=== PATIENT | female | born 1940 | race Caucasian/White ===

== ENCOUNTER 2017-12-10 12:55 | Observation (INO) | payer MEDICARE, OTHER ==
--- NOTE | 2017-12-10 14:01 | RAD ---
TWO VIEWS CHEST: HISTORY: Fall with left chest pain. FINDINGS: There is a small left apical pneumothorax in the 5-10% range. There are fractures of the lateral 7th, 8th, and 9th ribs identified on this frontal projection. Lung whitehead are otherwise clear. Heart and mediastinum unremarkable. There is aortic calcification noted. IMPRESSION: 1. Small left apical pneumothorax. 2. Left-sided rib fractures. Findings relayed to Dr. Lorenz. Code CR. POS: [facility]
[2017-12-10] MEDS ORDERED: Morphine 2 MG/ML SYRINGE ONE (14:09)
[2017-12-10] MEDS ORDERED: Ketorolac Tromethamine 30 MG/ML VIAL ONE (14:10)
[2017-12-10 14:15] LABS: #Basophils 0.1 thou/uL (0.0-0.2); #Eosinphils 0.1 thou/uL (0.0-0.7); #Lymphocytes 1.8 thou/uL (1.20-3.40); #Monocytes 1.2 thou/uL (0.11-0.59); #Neutrophils 14.1 thou/uL (1.40-6.50); %Basophils 0.5 % (0.0-1.0); %Eosinophils 0.6 % (0.0-10.0); %Lymphocytes 10.4 % (21.0-51.0); %Monocytes 6.9 % (0.0-10.0); %Neutrophils 81.7 % (42.0-75.0); Hemoglobin 12.5 g/dL (12.0-16.0); Mean Corpuscular HGB CONC 32.4 g/dL (32.0-36.0); Mean Corpuscular Hemoglobin 30.4 pg (27.0-31.0); Mean Corpuscular Volume 93.8 fl (81.0-99.0); Mean Platelet Volume 8.4 fL (7.4-10.4); Platelet Count 249 thou/uL (130-400); RBC Distribution Width 11.9 % (11.5-14.5); Red Blood Cell (RBC) Count 4.12 mill/uL (4.20-5.40); White Blood Cell (WBC) Count 17.3 thou/uL (4.8-10.8)
[2017-12-10 14:36] LABS: Anion Gap 14 mmol/L (10-20); BUN (Urea Nitrogen) 20 mg/dL (9.8-20.1); Calc. Creatinine Clearance 0 mL/min (70-130); Calcium 9.7 mg/dL (7.8-10.44); Carbon Dioxide 27 mmol/L (23-31); Chloride 101 mmol/L (98-107); Estimated GFR-MDRD 59; Glucose 108 mg/dL (83-110); Potassium 4.6 mmol/L (3.5-5.1); Sodium 137 mmol/L (136-145)
[2017-12-10] MEDS ORDERED: Dextrose 5% in Water 1,000 ML IV PRN (15:43)
[2017-12-10] MEDS ORDERED: hydrALAZINE 20 MG/ML VIAL SLOW IVP PRN (15:43)
[2017-12-10] MEDS ORDERED: Dextrose 50% Abboject 50 ML SYRINGE SLOW IVP PRN (15:43)
[2017-12-10] MEDS ORDERED: Ondansetron ODT 4 MG TAB PO PRN (15:43)
[2017-12-10] MEDS ORDERED: Rib Fracture Protocol PO SCH (15:45)
[2017-12-10] MEDS ORDERED: Sodium Chloride 0.9% 1,000 ML IV SCH (15:45)
--- NOTE | 2017-12-10 16:09 | CT ---
CT HEAD WITHOUT CONTRAST: Date: 12/10/17 HISTORY: Fall with injury to chest. Also injury to head. FINDINGS: Ventricles have normal size and position. No evidence of intracranial hemorrhage identified. No mass or edema. Sinuses and mastoids are well aerated. IMPRESSION: No acute abnormality. POS: [facility]
--- NOTE | 2017-12-10 17:01 | HP ---
DATE OF ADMISSION: 12/10/2017 ATTENDING PHYSICIAN: Deonte Spann DO CHIEF COMPLAINT: Left rib fracture. HISTORY OF PRESENT ILLNESS: The patient is a 77-year-old female who lives at home. She reportedly w as in her kitchen this morning when she tripped over her feet and fell hitting her left arm and left ribs on the counter and then landing on the floor. She felt immediate pain in her left ribs. She de nies hitting her head. She denies loss of consciousness. Her daughter was present on the scene, who verifies that she did not lose consciousness. She was brought to [place] where she was evaluated and found to have multiple left-sided rib fractures and a small apical pneumothorax. PHYSICAL EXAMINATION: On exam, the patient reports that her pain is located on the left lateral ches t wall. The pain is only moderately severe when she is resting; however, with movement or deep breat ang it becomes severe. She describes the pain as sharp. The pain does not radiate. She denies iván rtness of breath. She denies other chest pain. She denies dizziness or lightheadedness. Of note, h er GCS was 15 upon initial presentation. PAST MEDICAL HISTORY: The patient reports past medical history of high cholesterol, hypertension, hy pothyroidism, hyperlipidemia, and CVA with multiple TIAs. The patient is unsure of the date of her C VA, but reports it may have been in 2013. PAST SURGICAL HISTORY: The patient reports a right carotid endarterectomy in approximately 2010. Th e patient also reports a remote history of hysterectomy. FAMILY HISTORY: Noncontributory for this case. ALLERGIES: The patient denies any known drug allergies. HOME MEDICATIONS: The patient reports taking the following medications: She does not know the doses . Lisinopril; alprazolam; Synthroid; Keppra; Zetia; and Repatha, which she is taking experimentally. PHYSICAL EXAMINATION: VITAL SIGNS: BP 158/62, heart rate 70, O2 sats 100% on nonrebreather. GENERAL APPEARANCE: The patient is an elderly adult female sitting in bed in no acute distress. HEENT: She is normocephalic and atraumatic. Eyes: PERRLA. EOMI. Ears: External auditory canals are atraumatic and free of discharge or blood. Nose: Nares are patent. No blood or discharge. Katie th: Oropharynx is pink and moist. Dentition is intact. NECK: Trachea is midline. She has no tenderness. CHEST: She has tenderness to palpation with an appreciable bony deformity on her left lateral chest wall. This is in the area approximately of the 9th and 10th ribs. Her breath sounds are clear to a uscultation bilaterally with normal effort. CARDIOVASCULAR: She has a regular rate and rhythm with normal S1 and S2. No murmurs, gallops, or ru bs. ABDOMEN: Soft, nontender, nondistended. She has normal bowel sounds. EXTREMITIES: She is neurovascularly intact x4. Radial and dorsalis pedis pulses are 2+ bilaterally. She has 2 superficial abrasions on her left upper extremity. Neither of these penetrate the dermis . NEUROLOGIC: She is A and O x3. She has a GCS of 15. Cranial nerves II-XII are intact and she has n o apparent focal deficits. PSYCHIATRIC: Her mood and affect are appropriate. LABORATORY DATA: Hematology: WBC 17.3, hemoglobin 12.5, hematocrit 38.6, platelets 249. Chemistry: Sodium 137, potassium 4.6, chloride 101, bicarbonate 27, BUN 20, creatinine 0.92, glucose 108, calc ium 9.7. IMAGIN. Chest x-ray: Small left apical pneumothorax. Left-sided rib fractures. 2. Head CT: At the time of this dictation, head CT has been taken, but not reviewed. We will follo w up shortly. ASSESSMENT: 1. Status post ground level fall. 2. Small left apical pneumothorax. 3. Left-sided rib fractures. 4. Acute traumatic pain. 5. History of cerebrovascular accident, present on admission. 6. History of hypertension, present on admission. 7. Possible history of focal seizures, present on admission. PLAN: 1. Plan will be to admit the patient to the surgical floor. We will optimize her pain control and g domonique other supportive care measures as needed. She can be on a regular diet. 2. Follow up head CT once results are posted. 3. Repeat chest x-ray in the morning. If the pneumothorax is improved, the patient will likely be a ble to discharge. If it has worsened, we will consider putting in a chest tube. 4. We will consider recommending Home Health or home physical therapy to help with falling. We will discuss with family to try to get a better assessment of how often she is falling and what are the c ircumstances. This patient was seen and examined along with Dr. Deonte Spann, who agrees with the assessment and evans soares
[2017-12-10] MEDS: Acetaminophen 500 MG TAB PO SCH (18:37)
[2017-12-10] MEDS: traMADol HCl 50 MG TAB PO SCH (18:38)
[2017-12-10] MEDS: Gabapentin 100 MG CAP PO SCH (21:57)
[2017-12-10] MEDS: Ibuprofen 600 MG TAB PO SCH (21:58)
[2017-12-10] MEDS: Cyclobenzaprine 10 MG TAB PO PRN (21:58)
[2017-12-10] MEDS: Famotidine 20 MG TAB PO SCH (21:58)
[2017-12-10 22:25] VITALS: BMI 24.5
[2017-12-11] MEDS: traMADol HCl 50 MG TAB PO SCH ×4 (00:50→17:09)
[2017-12-11] MEDS: Acetaminophen 500 MG TAB PO SCH ×4 (00:52→17:05)
[2017-12-11] MEDS: Ibuprofen 600 MG TAB PO SCH ×2 (06:39→16:04)
[2017-12-11] MEDS: Cyclobenzaprine 10 MG TAB PO PRN (06:39)
[2017-12-11] MEDS: Gabapentin 100 MG CAP PO SCH ×2 (08:05→16:04)
[2017-12-11] MEDS: Famotidine 20 MG TAB PO SCH (08:05)
--- NOTE | 2017-12-11 08:08 | RAD ---
CHEST 1 VIEW: Date: 12/11/17 COMPARISON: 01/29/17 and 12/10/17. HISTORY: Pneumothorax. FINDINGS: Atherosclerosis of aorta. Normal cardiac silhouette. Pulmonary vessels are normal. Right costophrenic angle clear. Stable aeration of right lung. Stable left-sided pneumothorax. Small left-sided pleural effusion. Stable left rib fractures. IMPRESSION: 1. Interval development of small left-sided pleural effusion. 2. Atherosclerosis. 3. Stable left-sided pneumothorax. POS: [facility]
[2017-12-11 08:10] VITALS: TEMP 97.7
[2017-12-11 15:40] VITALS: BP 120/68
--- NOTE | 2017-12-12 11:24 | DIS ---
DATE OF ADMISSION: 12/10/2017 DATE OF DISCHARGE: 12/11/2017 ADMITTING PHYSICIAN: Dr. Deonte Spann. DISCHARGING PHYSICIAN: Dr. Deonte Spann. REASON FOR HOSPITALIZATION: Ground level fall with left rib pain. HOSPITAL DIAGNOSES: 1. Status post ground level fall. 2. Small apical left pneumothorax. 3. Left-sided rib fractures. 4. Acute traumatic pain. 5. History of cerebrovascular accident. 6. History of hypertension, present on admission. DISCHARGE CONDITION: Good. DISCHARGE DISPOSITION: [facility]. DISCHARGE MEDICATIONS: The patient may resume all home medications. In addition, she was also given acetaminophen 1000 mg oral every 6 hours, Flexeril 5 mg oral 3 times daily p.r.n., Pepcid 20 mg oral twice daily, Gabapentin 100 mg oral 3 times daily, hydralazine 10 mg slow IV push every 4 hours as needed, Motrin 600 mg oral every 8 hours, DuoNeb 3 mL every 6 hours as needed, and tramadol 100 mg oral every 6 hours. FOLLOWUP: Follow up with Dr. Spann in 2 weeks with repeat chest x-ray. ACTIVITY: As tolerated. DIET: Regular. THERAPY: Occupational, physical therapy EQUIPMENT: incentive spirometry. BRIEF HISTORY OF HOSPITALIZATION: Ms. Fay is a 77-year-old female, who had a ground level fall in her home. She was transported to [facility] where she was found to have multiple left-sided rib fractures as well as a small apical pneumothorax. She had no respiratory distress or any other symptoms. Her GCS was 15 upon initial presentation and remained 15. She was admitted to the surgical floor by Trauma services. Followup chest x-ray the next morning showed stable left pneumothorax. She was instructed on incentive spirometry. She remained 94% to 100% on room air. She was evaluated by rehab and accepted to [facility]. She was then discharged to the [facility] facility. She will follow up with Dr. Spann in 2 weeks. Patient was seen and examined with Dr. Spann on the day of discharge. He agrees with the assessment and plan. [facility]
== END 2017-12-11 18:02 ==
LOC: ERS 12:55 → SURG A 15:23
PROVIDERS: ADMIT Surgery; ATTEND Surgery
DX: S27.0XXA Traumatic pneumothorax, initial encounter (principal); S22.42XA Multiple fractures of ribs, left side, initial encounter for closed fracture; W01.190A Fall on same level from slipping, tripping and stumbling with subsequent striking against furniture, initial encounter; G89.11 Acute pain due to trauma; I10 Essential (primary) hypertension; E78.00 Pure hypercholesterolemia, unspecified; E03.9 Hypothyroidism, unspecified; E78.5 Hyperlipidemia, unspecified; Z86.73 Personal history of transient ischemic attack (TIA), and cerebral infarction without residual deficits; Z79.82 Long term (current) use of aspirin; Z79.899 Other long term (current) drug therapy; Z88.8 Allergy status to other drugs, medicaments and biological substances; Z90.710 Acquired absence of both cervix and uterus; Z98.890 Other specified postprocedural states
CPT/HCPCS: 70450; 71045; 71046; 80048; 85025; 94640 ×2; 94760; 96374; 96375; 97116; 97139; 99285; G0378; G8978; G8979; J1885; J2270; J7620

== ENCOUNTER 2017-12-27 09:32 | Outpatient (CLI) | payer MEDICARE, OTHER ==
--- NOTE | 2017-12-27 11:31 | RAD ---
CHEST 2 VIEWS: Date: 12/27/17 COMPARISON: 12/10/17. HISTORY: Follow-up pneumothorax. FINDINGS: Left-sided rib fractures are again demonstrated. Heart size within normal limits. There are atheroscl erotic changes of the aorta. The right lung is clear. There is some left-sided pleural effusion prese nt. The pneumothorax appears to have resolved. IMPRESSION: Pleural and parenchymal changes of the left base consistent with some effusion with atelectasis. No s igns of pneumothorax. POS: [facility]
== END 2017-12-27 09:33 | disposition home or self-care (01) ==
LOC: RAD 09:32
PROVIDERS: ATTEND Family Medicine
DX: S22.42XD Multiple fractures of ribs, left side, subsequent encounter for fracture with routine healing (principal); J93.9 Pneumothorax, unspecified
CPT/HCPCS: 71046

== ENCOUNTER 2018-12-24 12:05 | Inpatient (IN) | payer MEDICARE ==
[2018-12-24 12:33] LABS: #Basophils 0.1 thou/uL (0.0-0.2); #Eosinphils 0.1 thou/uL (0.0-0.7); #Lymphocytes 1.7 thou/uL (1.20-3.40); #Monocytes 0.8 thou/uL (0.11-0.59); #Neutrophils 8.6 thou/uL (1.40-6.50); %Basophils 0.5 % (0.0-1.0); %Eosinophils 0.5 % (0.0-10.0); %Lymphocytes 15.3 % (21.0-51.0); %Monocytes 7.1 % (0.0-10.0); %Neutrophils 76.7 % (42.0-75.0); Hemoglobin 12.8 g/dL (12.0-16.0); Mean Corpuscular HGB CONC 31.1 g/dL (32.0-36.0); Mean Corpuscular Hemoglobin 29.5 pg (27.0-31.0); Mean Platelet Volume 8.9 fL (7.4-10.4); Platelet Count 250 thou/uL (130-400); RBC Distribution Width 11.8 % (11.5-14.5); Red Blood Cell (RBC) Count 4.35 mill/uL (4.20-5.40); White Blood Cell (WBC) Count 11.2 thou/uL (4.8-10.8)
[2018-12-24 12:37] LABS: Prothrombin Time 13.3 SEC (12.0-14.7)
[2018-12-24 12:46] LABS: ALT (SGPT) 18 U/L (8-55); AST (SGOT) 21 U/L (5-34); Albumin 3.9 g/dL (3.4-4.8); Alkaline Phosphatase 113 U/L (40-150); Anion Gap 13 mmol/L (10-20); BUN (Urea Nitrogen) 14 mg/dL (9.8-20.1); Bilirubin, Total 0.3 mg/dL (0.2-1.2); CK (CPK) 85 U/L (29-168); Calc. Creatinine Clearance 0 mL/min (70-130); Calcium 9.9 mg/dL (7.8-10.44); Carbon Dioxide 22 mmol/L (23-31); Chloride 105 mmol/L (98-107); Estimated GFR-MDRD 59; Globulin 3.6 g/dL (2.4-3.5); Glucose 102 mg/dL (83-110); Potassium 4.4 mmol/L (3.5-5.1); Protein, Total 7.5 g/dL (6.0-8.3); Sodium 136 mmol/L (136-145)
--- NOTE | 2018-12-24 12:49 | CT ---
CT BRAIN WITHOUT CONTRAST: HISTORY: Level II stroke. FINDINGS: Comparison is made with the exam of 12/10/2017. There is acute 4 cm intraparenchymal contusion/hemorrhage with surrounding edema involving the left t emporoparietal lobe. The ventricular size is appropriate and the basilar cisterns are patent. No mi dline shift is seen. The bony calvarium is intact. The visualized paranasal sinuses and mastoid air cells are well aerated. IMPRESSION: Acute left-sided intraaxial hemorrhage. Discussed over the telephone with ER physician, Dr. Pelon Epps, at 12:40 p.m. [facility]
[2018-12-24 12:58] LABS: PTT 20.2 SEC (22.9-36.1)
[2018-12-24] MEDS ORDERED: niCARdipine 20MG In NaCl 20 MG/200 ML BAG ONE ×2 (13:14→17:46)
[2018-12-24 13:15] LABS: Bilirubin Negative (Negative); Blood, Urine Moderate (Negative); Clarity CLEAR (Clear); Glucose, Urine (Dipstick) Negative (Negative); Leukocyte Negative (Negative); Nitrite Negative (Negative); Protein, Urine (Dipstick) Negative (Neg-Trace); Specific Gravity, Urine 1.003 (1.002-1.036); Urobilinogen 0.2 mg/dL (0.2-1.0)
[2018-12-24 13:19] LABS: Bacteria/HPF 1+ HPF (None Seen); Hyaline Casts/LPF 0-3 HYALINE CAST LPF (0-3 Hyaline); Squamous Epithelial None Seen HPF (0-3); WBC/HPF None Seen HPF (0-3)
[2018-12-24] MEDS ORDERED: Docusate 100 MG CAP PO PRN (17:19)
[2018-12-24] MEDS ORDERED: Milk Of Magnesia 30 ML UDCUP PO PRN (17:19)
[2018-12-24] MEDS ORDERED: Mag-Al 1200 mg/1200 mg/30 ML UDCUP PO PRN (17:19)
[2018-12-24] MEDS ORDERED: Bisacodyl 10 MG SUPP PR PRN (17:19)
[2018-12-24] MEDS ORDERED: Labetalol HCl 100 MG/20 ML VIAL SLOW IVP PRN (17:19)
[2018-12-24] MEDS ORDERED: Acetaminophen 325 MG TAB PO PRN (17:19)
[2018-12-24] MEDS ORDERED: Ondansetron HCl/PF 4 MG in Sodium Chloride 0.9% 50 ML IVPB PRN (17:24)
[2018-12-24] MEDS ORDERED: niCARdipine 40MG In NaCl 40 MG/200 ML BAG IVPB SCH (17:30)
[2018-12-24] MEDS ORDERED: Communication Order-Pharmacy FS PRN (17:42)
[2018-12-24] MEDS ORDERED: niCARdipine HCl 50 MG in Sodium Chloride 0.9% 250 ML 230 ML IVPB PRN (18:01)
[2018-12-24] MEDS ORDERED: levETIRAcetam In NaCl (Iso-Os) 1,000 MG in Premix Bag 1 BAG IVPB SCH (18:15)
[2018-12-24 23:57] VITALS: BMI 24.7
--- NOTE | 2018-12-25 00:29 | HP ---
This is a 50-minute initial patient evaluation of which greater than 50% of the exam was spent in counseling and coordinating the patient's care. Remainder of the exam was spent in review of patient's medical records and formulation of treatment plan. CHIEF COMPLAINT: Altered mental status with large parietooccipital intraparenchymal hemorrhage. HISTORY OF PRESENT ILLNESS: Ms. Fay is a pleasant 78-year-old female, who presents to [facility] for the above complaints. She had significant expressive and receptive aphasia. Majority of her history and exam was obtained from her son and daughter who are at bedside. The patient normally lives alone at home, but has not been driving for the past 3 months. She has a history of TIA in 2011, for which she is on 81 mg aspirin. She does not use tobacco. Apparently, she had spent the weekend with her family and her daughter even saw her yesterday, and states that she was in her normal state of health, but this afternoon when she checked on the patient, she appeared to have significant expressive and receptive aphasia, and was brought to [place]. Review of the patient's head CT again shows large parietooccipital region intraparenchymal hemorrhage, consistent likely with amyloid angiopathy. The patient does have hypertension, and her presenting systolic blood pressure was in the 190s. The patient's family do not report any trauma, although they state that they did see a bruise on her elbow over the last few days. PHYSICAL EXAMINATION: The patient is awake and alert. She again has significant expressive and receptive aphasia, which significantly limits her exam. She is unable to formally follow commands and does not mimic commands. Pupils are equal, round, and reactive bilaterally. She does move all four extremities and appears to be able to move these equally. She has no obvious signs of facial or cranial trauma. GCS currently is E4, V4, M6, which makes her GCS of 14. IMPRESSION AND DIAGNOSES: Altered mental status with left parietooccipital intraparenchymal hemorrhage, likely amyloid angiopathy. PLAN: Discussed the patient's case and imaging with Dr. Feng. At this time, we will admit the patient for overnight observation with every 1 hour neuro checks. Likely, her case does not require neurosurgical intervention and this will likely take time in rehab to improve. We discussed this at great length with the patient's son and daughter. She is able to eat full liquids and I would like her systolic blood pressure to remain less than 140. I have also started her on loading dose of 1000 mg of Keppra with maintenance dose of 500 b.i.d. that we will continue for 1 week. The patient will be on strict bedrest. Please call with any changes in the patient's neurologic status. Otherwise, we will follow up with the patient to repeat head CT in the morning or sooner should symptoms dictate. Job ID: [id number]
[2018-12-25 05:32] LABS: #Basophils 0.1 thou/uL (0.0-0.2); #Eosinphils 0.1 thou/uL (0.0-0.7); #Lymphocytes 1.9 thou/uL (1.20-3.40); #Monocytes 1.1 thou/uL (0.11-0.59); #Neutrophils 7.7 thou/uL (1.40-6.50); %Basophils 0.9 % (0.0-1.0); %Eosinophils 0.7 % (0.0-10.0); %Lymphocytes 17.1 % (21.0-51.0); %Neutrophils 71.2 % (42.0-75.0); Mean Corpuscular Hemoglobin 29.7 pg (27.0-31.0); Mean Corpuscular Volume 92.6 fL (78.0-98.0); Platelet Count 221 thou/uL (130-400); RBC Distribution Width 11.9 % (11.5-14.5); Red Blood Cell (RBC) Count 4.06 mill/uL (4.20-5.40); White Blood Cell (WBC) Count 10.8 thou/uL (4.8-10.8)
[2018-12-25 06:41] LABS: Anion Gap 13 mmol/L (10-20); BUN (Urea Nitrogen) 12 mg/dL (9.8-20.1); Calc. Creatinine Clearance 63 mL/min (70-130); Calcium 9.2 mg/dL (7.8-10.44); Carbon Dioxide 23 mmol/L (23-31); Chloride 104 mmol/L (98-107); Estimated GFR-MDRD 66; Glucose 105 mg/dL (83-110); Potassium 3.8 mmol/L (3.5-5.1); Sodium 136 mmol/L (136-145)
[2018-12-25] MEDS ORDERED: Docusate 100 MG CAP PO PRN (08:16)
[2018-12-25] MEDS: Pantoprazole 40 MG VIAL IVP SCH (09:33)
--- NOTE | 2018-12-25 09:46 | CT ---
PRELIMINARY REPORT/[facility]/EMERGENTY AFTER-HOURS PROCEDURE CT Head Without Contrast EXAM DATE/TIME: 12/25/2018 4:08 AM CLINICAL HISTORY: 78 years old, female; Abnormal radiologic findings of head / skull; Ischemia; F/u intraparenchymal he morrhage; Previous images sent and report faxed TECHNIQUE: Imaging protocol: Axial computed tomography images of the head/brain without contrast. COMPARISON: CT Brain WO Con 12/24/2018 12:34 PM FINDINGS: Brain: Compared to prior examination dated 12/24/2018 and allowing for differences in patient positio fabian, no significant interval change in size of acute intraparenchymal hematoma within the left tempo roparietal region with adjacent vasogenic edema. Periventricular white matter areas of decreased density which are likely secondary to chronic ischemia from microvascular change. Mild diff use cerebral atrophy. Ventricles: Normal. No ventriculomegaly. Bones/joints: Unremarkable. No acute fracture. Sinuses: No significant disease of the paranasal sinuses. Mastoid air cells: No mastoiditis. Soft tissues: Unremarkable. IMPRESSION: 1. Compared to prior examination dated 12/24/2018 and allowing for differences in patient positioning , no significant interval change in size of acute intraparenchymal hematoma within the left temporopa rietal region with adjacent vasogenic edema. Thank you for allowing us to participate in the care of your patient. Dictated and Authenticated by: Clif Glynn MD 12/25/2018 4:33 AM Central Time ([place] & [place]) FINAL REPORT EMERGENCY AFTER HOURS CT BRAIN WITHOUT CONTRAST: Date: 12/25/18 FINDINGS/IMPRESSION: I agree with the preliminary report provided by Rachel. Accounting for limitations to the examination and alterations in position and scan planes of the brai n, the intraparenchymal hematoma in left temporoparietal region with associated surrounding vasogenic edema is likely stable. No midline shift is evident. The basilar cisterns remain patent. POS: [facility]
--- NOTE | 2018-12-25 10:34 | RAD ---
CHEST ONE VIEW: Indication: History of CVA. Comparison: 12-11-17 FINDINGS: The heart size is accentuated by exam technique. No consolidation is evident. There are healed rib de formities involving the left posterior 7th and 8th rib. IMPRESSION: No definite acute cardiopulmonary abnormality. POS: [facility]
[2018-12-25] MEDS: Citalopram 20 MG TAB PO SCH (11:09)
--- NOTE | 2018-12-25 11:33 | CON ---
DATE OF CONSULTATION: HISTORY OF PRESENT ILLNESS: Phyllis Fay is an 78-year-old female presented with the mental status change. The son is at the bedside, who states that yesterday the daughter called, the patient was confused. Son's went to see the patient next door, found that she was clearly confused. She does have a history of dementia. She is brought to the ER, where a CT showed a large left-sided temporofrontal hemorrhage. She is now in the ICU on Cardene drip. The patient is a nonsmoker as per the son. PAST MEDICAL HISTORY: Pertinent for dementia, hypertension, previous TIA, and hypothyroidism. PAST SURGICAL HISTORY: Apparently hysterectomy. SOCIAL HISTORY: Alcohol, none. Tobacco, none. HOME MEDICATIONS: Includes: 1. Hydralazine. 2. Synthroid 100. 3. Xanax p.r.n. 4. Celexa 20. 5. Pepcid. 6. . ALLERGIES: STATIN REVIEW OF SYSTEMS: Otherwise unobtainable. The patient is aphasic, does move all 4 extremities. PHYSICAL EXAMINATION: VITAL SIGNS: Blood pressure 170/58, pulse 80, respiratory rate 18, and sats 90%. CHEST: Decreased breath sounds. No wheezing. CARDIAC: Normal S1 and S2. No gallops. ABDOMEN: No masses. LABORATORY DATA: Labs unremarkable. Lytes are normal. White count unremarkable. Hemoglobin and hematocrit unremarkable. Thyroid function pending. IMPRESSION: 1. Status post left intra-axial hemorrhage. 2. Hypertension. 3. Dementia. PLAN: As per Neurosurgery supportive care. Continue Cardene. She is able to swallow, switch over to oral medication. Pulmonary/Critical Care will follow while in the ICU. Consultation note, 70 minutes, 50% direct patient care. Job ID: [id number]
--- NOTE | 2018-12-25 12:19 | CON ---
DATE OF CONSULTATION: 12/25/2018 PRIMARY CARE PROVIDER: Dr. Endy Wheat. REASON FOR CONSULT: Medical management. HISTORY OF PRESENT ILLNESS: This is an 78-year-old female, who presented to [facility] Emergency Department on 12/24/2018, after experiencing altered mental status with CT imaging confirming a large left parieto-occipital intra parenchymal hemorrhage. The patient was admitted under neurosurgical service and placed in the Critical Care Unit. The patient was noted with severe receptive and expressive aphasia with altered mental status. Family denied any documented or witnessed fall or injury, and patient had been functional of activities of daily living including independent living according to the son. The history is obtained after review of electronic medical record documentation as well as discussions with the patient's son at the bedside. The patient's history is significant for a prior TIA with left-sided paresthesias as well as history of previous fall sustaining left-sided rib fractures and requiring an inpatient rehabilitation stay in 2018. The son reports the patient has been compliant with her medication regimen and does take aspirin 81 mg daily. The patient has been noted with some mild memory impairment, but does live independently and is checked on by her son and daughter on a regular basis. The patient was placed in the critical care unit and initially placed on a Cardene infusion for blood pressure management, which has since been discontinued. The patient also received Keppra 1000 mg loading dose followed by 500 mg intravenously q.12 hours. The patient remains somnolent, opening eyes briefly with expressive and receptive aphasia. PAST MEDICAL HISTORY: 1. Hypertension. 2. History of TIA with left-sided paresthesia. 3. History of fall with left-sided rib fractures. 4. Cervical spondylosis. 5. Lumbar spondylosis. 6. Depression. 7. Hypothyroidism. 8. Hyperlipidemia. PAST SURGICAL HISTORY: 1. Status post bladder suspension. 2. Status post hysterectomy. 3. Status post carotid endarterectomy. CURRENT MEDICATIONS: 1. Xanax 0.125 mg p.o. daily p.r.n. 2. Vitamin D3 2000 units p.o. daily. 3. Citalopram 20 mg p.o. daily. 4. Levothyroxine 100 mcg p.o. daily. 5. [place]-3 fatty acids 1 capsule p.o. daily. 6. Enteric-coated aspirin 81 mg p.o. daily. 7. Flexeril 5 mg p.o. t.i.d. p.r.n. 8. Neurontin 100 mg p.o. t.i.d. ALLERGIES: 1. GABAPENTIN. 2. STATINS. FAMILY HISTORY: Positive for coronary artery disease. SOCIAL HISTORY: The patient resides in the [place], [place] area. Lives independently. No current alcohol, tobacco, or illicit drug use. Former tobacco use. Accompanied by her son in the hospital. REVIEW OF SYSTEMS: Unobtainable with the patient's altered mental status and intracranial hemorrhage. PHYSICAL EXAMINATION: VITAL SIGNS: Currently blood pressure 117/58, pulse 80, respiratory rate is 14, temperature 99.6 with a T-max of 100.6 degrees Fahrenheit, O2 saturation 98% on room air. GENERAL APPEARANCE: This is an 78-year-old female, opens eyes to name briefly with expressive aphasia. HEENT: Pupils are equal, round, reactive to light and accommodation. Extraocular muscles are intact. No scleral icterus. No conjunctival injection. Nares patent. OP is clear. Teeth in good repair. Scalp is atraumatic. NECK: Supple. No cervical adenopathy. No thyromegaly. No carotid bruits. No JVD appreciated. Cervical spine with full active and passive range of motion. No meningeal signs noted. CHEST: Lungs are clear to auscultation bilaterally. CARDIOVASCULAR: S1-S2 without noted murmur, rub, or gallop. ABDOMEN: Rounded, soft, nontender, and nondistended. Bowel sounds are positive in all 4 quadrants. No hepatosplenomegaly. No abdominal bruits. No rebound or guarding appreciated. EXTREMITIES: Warm and dry with fair turgor. No clubbing, cyanosis, or asymmetric edema appreciated. Does not follow formal commands. Expressive and receptive aphasia noted. EXTREMITIES: Warm and dry with fair turgor. No clubbing, cyanosis, or asymmetric edema appreciated. Pulses palpable distally at the dorsalis pedis, posterior tibial, and popliteal arteries bilaterally. Capillary refill less than 2 seconds. PERTINENT LAB AND X-RAY FINDINGS: Complete metabolic profile within normal limits. Troponin less than 0.010. CBC showed a white blood cell count of 10.8, hemoglobin 12, hematocrit 38, and platelet count 221 with 71% neutrophils. PT 13.3, INR 1.0, PTT 20.2. Urinalysis showed moderate blood with 11 to 20 rbc's per high-power field. IMAGING: CT of the brain without contrast dated 12/24/2018, showed acute left-sided intra-axial hemorrhage. CT of the brain without contrast dated 12/25/2018, showed no significant interval change from previous CT imaging 12/24/2018, with persistent acute intraparenchymal hematoma in the left temporoparietal region with associated vasogenic edema. Portable chest x-ray dated 12/25/2018, by my review shows no acute cardiopulmonary process. EKG dated 12/24/2018, by my interpretation shows sinus mechanism with heart rates in the 70s. Attenuated R-waves noted in the precordial leads. Left axis deviation. No acute ST-T wave changes appreciated. ASSESSMENT/PLAN: 1. Acute left parieto-occipital intraparenchymal hemorrhage. The patient admitted to the Critical Care Unit. Continue general medical management. No acute surgical intervention recommended by Neurosurgery currently. Continue blood pressure control and monitor clinical progress. Serial CT imaging of the brain. 2. Acute metabolic encephalopathy secondarily to acute left parieto-occipital intraparenchymal hemorrhage. 3. Continue supportive management. Serial neurologic exams. 4. Expressive/receptive aphasia secondary to acute left parieto-occipital intraparenchymal hemorrhage. We will continue general stroke protocol. Obtain carotid Doppler exam in addition to 2D transthoracic echocardiogram. Speech therapy consult placed. 5. Hypertension. Stable currently. We will continue serial blood pressure monitoring. Previously on Cardene infusion, currently discontinued. 6. Seizure disorder. Continue Keppra 500 mg IV q.12 hours. General seizure precautions. 7. Hypothyroidism. Continue levothyroxine 100 mcg daily. 8. Prophylaxis. Sequential compression devices while in bed. Protonix 40 mg IV q.24 hours. PT, OT, and speech therapy consult. 9. Code status is full. Surrogate medical decision maker is patient's son. Thank you for the consult. We will continue to follow with primary service. Job ID: [id number]
--- NOTE | 2018-12-25 14:33 | PRG ---
DATE OF SERVICE: 12/25/2018 This is 30-minute initial hospital visit note, in which 30 minutes were spent reviewing the imaging record, evaluation, examination of the patient, formulation of plan. Greater than 50% time was spent in counseling on Phyllis Fay. SUBJECTIVE: Ms. Fay presented with left temporal lobe intraparenchymal hemorrhage. This was slightly bigger on repeat head CT. She is largely nonverbal for me this morning, but does move her extremities spontaneously. There is also concern of baseline dementia. There is no role in neurosurgical intervention here. This is likely an amyloid angiopathy hemorrhage and as such, should stabilize with time. I would avoid antiplatelet or anticoagulant medication. DIAGNOSIS: Left temporal lobe hemorrhage. Job ID: [id number]
--- NOTE | 2018-12-25 15:12 | ULT ---
BILATERAL CAROTID DUPLEX ULTRASOUND: DATE: 12/25/18 HISTORY: CVA. TECHNIQUE: Nice scale ultrasound with color flow and spectral Doppler imaging of the extracranial carotid artery systems performed bilaterally. FINDINGS: There is plaque formation on either side. The peak systolic velocity in the right ICA measures 108 cm/second with an end-diastolic velocity of 26 cm/second and a systolic ratio of 0.95. The peak systolic velocity in the left ICA measures 180 cm/second with an end-diastolic velocity of 3 1 cm/second and a systolic ratio of 1.47. Flow in both vertebral arteries remains antegrade. IMPRESSION: 1. Moderate (50-69%) stenosis involving the left ICA. 2. Mild (less than 50%) stenosis involving the right ICA. POS: LENORE
[2018-12-26] MEDS: Levothyroxine Sodium 100 MCG TAB PO SCH (05:41)
[2018-12-26 06:01] LABS: Cardiac Risk 3.6 (Less than 4.5)
--- NOTE | 2018-12-26 08:15 | PRG ---
DATE OF SERVICE: 12/26/2018 SUBJECTIVE: This morning awake, alert, and responsive. She is aphasic. Denies any pain. OBJECTIVE: VITAL SIGNS: Blood pressure 127/68, respiratory rate 16, pulse 60, sats 98% on room air. CHEST: No wheezing or crackles. CARDIAC: Normal S1, S2. No gallops. ABDOMEN: No masses. IMPRESSION: Status post left temporoparietal hemorrhage, l_, hypertension and hypothyroidism. PLAN: The patient appears to have stabilized. Continue PT supportive care and home medication. Disposition as per Neurosurgery. Job ID: [id number] MTDD
[2018-12-26] MEDS: Citalopram 20 MG TAB PO SCH (10:02)
[2018-12-26] MEDS: Pantoprazole 40 MG VIAL IVP SCH (10:03)
--- NOTE | 2018-12-26 13:25 | PRG ---
DATE OF SERVICE: 12/26/2018 This is a 15 minutes subsequent visit note. Ms. Fay is improved this morning from a level of alertness. She has her eyes open. She weakly will mimic, but has aphasia. We are continuing to follow along to ensure stability in her hemorrhage. Plan is for transfer to the neuro floor and I am fine with that. Job ID: [id number]
--- NOTE | 2018-12-26 16:13 | PDOC.PN ---
- Subjective Encounter Start Date: 12/26/18 Encounter Start Time: 16:12 Subjective: Admitted with acute aphasia and confusuion. CT showed intracerebral hem -: Clinically improved. obeying commands and verbalizing some words in sentenc -: Denied fever or chest pain. - Objective Resuscitation Status - Order Detail: 12/24/18 17:19 Resuscitation Status Routine Co-Sign Provider: Resuscitation Status: FULL: Full Resuscitation Vital Signs & Weight: Vital Signs (12 hours) Temp Pulse Pulse Pulse Resp BP BP 12/26/18 14:00 73 69 122/72 123/58 L 12/26/18 12:25 75 12 12/26/18 12:00 98.0 F 12/26/18 10:28 73 116/42 L 12/26/18 08:00 98.3 F 12/26/18 07:12 63 16 Pulse Ox Pulse Ox 12/26/18 14:00 100 100 12/26/18 12:25 12/26/18 12:00 12/26/18 10:28 100 12/26/18 08:00 12/26/18 07:12 Weight Weight 161 lb 2.526 oz Most Recent Monitor Data Heart Rate from ECG 71 NIBP 139/62 NIBP BP-Mean 87 Respiration from ECG 21 SpO2 100 I&O: 12/25/18 12/26/18 12/27/18 06:59 06:59 06:59 Intake Total 599 935 240 Output Total 600 1750 Balance -1 -815 240 Result Diagrams: 12/25/18 05:14 12/25/18 05:14 Phys Exam - Physical Examination HEENT: PERRLA, moist MMs Neck: no JVD, supple fair air entry bilaterally with no crackles or rhnochi Cardiovascular: RRR soft systolic murmur Gastrointestinal: soft, non-tender, no distention, positive bowel sounds Musculoskeletal: no edema, pulses present Neurological: moves all 4 limbs conversational. Power 4+/4 all limbs Dx/Plan (1) HTN (hypertension) Code(s): I10 - ESSENTIAL (PRIMARY) HYPERTENSION Status: Acute (2) Acute CVA (cerebrovascular accident) Code(s): I63.9 - CEREBRAL INFARCTION, UNSPECIFIED Status: Acute (3) Hypothyroidism Code(s): E03.9 - HYPOTHYROIDISM, UNSPECIFIED Status: Acute (4) Diastolic dysfunction Code(s): I51.89 - OTHER ILL-DEFINED HEART DISEASES Status: Acute (5) Atherosclerosis of both carotid arteries Code(s): I65.23 - OCCLUSION AND STENOSIS OF BILATERAL CAROTID ARTERIES Status : Acute (6) Aphasia due to acute stroke Code(s): I63.9 - CEREBRAL INFARCTION, UNSPECIFIED; R47.01 - APHASIA Status: Acute (7) HLD (hyperlipidemia) Code(s): E78.5 - HYPERLIPIDEMIA, UNSPECIFIED Status: Acute - Plan Restart low dose lisinopril. -: Start also low dose of statin. history of leg pain noted in EMR -: Diet as tolerated -: DC cardene infusion. -: PT/OT eval and treat. * .
[2018-12-26] MEDS ORDERED: Lisinopril 2.5 MG TAB PO SCH (16:15)
[2018-12-26] MEDS: levETIRAcetam 500 MG TAB PO SCH (20:53)
[2018-12-27] MEDS: Pravastatin Sodium 20 MG TAB PO SCH ×2 (04:43→20:58)
[2018-12-27] MEDS: Levothyroxine Sodium 100 MCG TAB PO SCH (05:53)
[2018-12-27 07:38] LABS: Anion Gap 11 mmol/L (10-20); BUN (Urea Nitrogen) 25 mg/dL (9.8-20.1); Calc. Creatinine Clearance 42 mL/min (70-130); Carbon Dioxide 25 mmol/L (23-31); Chloride 104 mmol/L (98-107); Estimated GFR-MDRD 42; Glucose 105 mg/dL (83-110); Potassium 4.1 mmol/L (3.5-5.1); Sodium 136 mmol/L (136-145)
[2018-12-27] MEDS ORDERED: Lisinopril 2.5 MG TAB PO SCH (09:00)
[2018-12-27] MEDS: Citalopram 20 MG TAB PO SCH (10:10)
[2018-12-27] MEDS: levETIRAcetam 500 MG TAB PO SCH ×2 (10:10→20:58)
--- NOTE | 2018-12-27 13:05 | PDOC.PN ---
- Subjective Encounter Start Date: 12/27/18 Encounter Start Time: 13:03 Subjective: Reportedly was agitated last night. Was given seroquel. -: aphasia said to wax and wane. denied headache, nausea, vomiting or fever - Objective Resuscitation Status - Order Detail: 12/24/18 17:19 Resuscitation Status Routine Co-Sign Provider: Resuscitation Status: FULL: Full Resuscitation Vital Signs & Weight: Vital Signs (12 hours) Temp Pulse Resp BP Pulse Ox 12/27/18 11:38 97.6 F 77 16 95/57 L 96 12/27/18 07:40 98.5 F 66 16 93/45 L 97 12/27/18 06:07 73 16 93 L 12/27/18 04:00 98.9 F 73 18 114/56 L 96 Weight Weight 159 lb 4 oz Most Recent Monitor Data Heart Rate from ECG 70 NIBP 129/57 NIBP BP-Mean 81 Respiration from ECG 15 SpO2 100 I&O: 12/26/18 12/27/18 12/28/18 06:59 06:59 06:59 Intake Total 935 438 Output Total 1750 Balance -815 438 Result Diagrams: 12/25/18 05:14 12/27/18 07:15 Phys Exam - Physical Examination Constitutional: NAD HEENT: PERRLA, moist MMs Neck: no JVD, supple Respiratory: no wheezing, no rales, no rhonchi Cardiovascular: RRR Gastrointestinal: soft, non-tender, no distention, positive bowel sounds Musculoskeletal: no edema, pulses present Neurological: non-focal, moves all 4 limbs variable degree of receptive and expressive aphasia noted. obeying simple commands Dx/Plan (1) Acute spontaneous intraparenchymal intracranial hemorrhage Code(s): I62.9 - NONTRAUMATIC INTRACRANIAL HEMORRHAGE, UNSPECIFIED Status: Acute (2) Acute CVA (cerebrovascular accident) Code(s): I63.9 - CEREBRAL INFARCTION, UNSPECIFIED Status: Acute Comment: Hemorrhagic. (3) HTN (hypertension) Code(s): I10 - ESSENTIAL (PRIMARY) HYPERTENSION Status: Acute (4) Hypothyroidism Code(s): E03.9 - HYPOTHYROIDISM, UNSPECIFIED Status: Acute (5) Diastolic dysfunction Code(s): I51.89 - OTHER ILL-DEFINED HEART DISEASES Status: Acute (6) Atherosclerosis of both carotid arteries Code(s): I65.23 - OCCLUSION AND STENOSIS OF BILATERAL CAROTID ARTERIES Status : Acute (7) Aphasia due to acute stroke Code(s): I63.9 - CEREBRAL INFARCTION, UNSPECIFIED; R47.01 - APHASIA Status: Acute (8) HLD (hyperlipidemia) Code(s): E78.5 - HYPERLIPIDEMIA, UNSPECIFIED Status: Acute (9) HUY (acute kidney injury) Code(s): N17.9 - ACUTE KIDNEY FAILURE, UNSPECIFIED Status: Acute - Plan Dc Lisinopril as BP is soft and new onset HUY. -: Increase activity. Monitor renal function. -: Continue other medications. -: anticipate in patient rehab -: Start low dose pravastatin and monitor. * .
[2018-12-28] MEDS: Levothyroxine Sodium 100 MCG TAB PO SCH (06:07)
[2018-12-28 06:09] LABS: #Basophils 0.1 thou/uL (0.0-0.2); #Eosinphils 0.2 thou/uL (0.0-0.7); #Lymphocytes 2.2 thou/uL (1.20-3.40); #Neutrophils 3.7 thou/uL (1.40-6.50); %Basophils 0.9 % (0.0-1.0); %Eosinophils 3.2 % (0.0-10.0); %Monocytes 13.6 % (0.0-10.0); %Neutrophils 51.3 % (42.0-75.0); Mean Corpuscular HGB CONC 33.2 g/dL (32.0-36.0); Mean Corpuscular Hemoglobin 30.2 pg (27.0-31.0); Mean Corpuscular Volume 90.9 fL (78.0-98.0); Mean Platelet Volume 8.6 fL (7.4-10.4); Platelet Count 225 thou/uL (130-400); RBC Distribution Width 11.6 % (11.5-14.5); Red Blood Cell (RBC) Count 3.66 mill/uL (4.20-5.40); White Blood Cell (WBC) Count 7.2 thou/uL (4.8-10.8)
[2018-12-28 06:29] LABS: Anion Gap 14 mmol/L (10-20); BUN (Urea Nitrogen) 21 mg/dL (9.8-20.1); Calc. Creatinine Clearance 50 mL/min (70-130); Calcium 9.1 mg/dL (7.8-10.44); Carbon Dioxide 25 mmol/L (23-31); Chloride 105 mmol/L (98-107); Estimated GFR-MDRD 53; Glucose 101 mg/dL (83-110); Potassium 4.6 mmol/L (3.5-5.1); Sodium 139 mmol/L (136-145)
[2018-12-28] MEDS: levETIRAcetam 500 MG TAB PO SCH (09:01)
[2018-12-28] MEDS: Citalopram 20 MG TAB PO SCH (09:01)
[2018-12-28 11:34] VITALS: BP 115/67; TEMP 98.7
== END 2018-12-28 15:34 | DRG 64 ==
LOC: ERS 12:05 → CCU 16:30 → 2SE 12-26 16:58
PROVIDERS: ADMIT Surgery; ATTEND Surgery
DX: I61.1 Nontraumatic intracerebral hemorrhage in hemisphere, cortical (principal); G93.6 Cerebral edema; G93.41 Metabolic encephalopathy; E85.4 Organ-limited amyloidosis; R47.01 Aphasia; N17.9 Acute kidney failure, unspecified; I68.0 Cerebral amyloid angiopathy; G40.909 Epilepsy, unspecified, not intractable, without status epilepticus; R40.2363 Coma scale, best motor response, obeys commands, at hospital admission; R40.2143 Coma scale, eyes open, spontaneous, at hospital admission; R40.2243 Coma scale, best verbal response, confused conversation, at hospital admission; I65.23 Occlusion and stenosis of bilateral carotid arteries; E03.9 Hypothyroidism, unspecified; M47.812 Spondylosis without myelopathy or radiculopathy, cervical region; M47.816 Spondylosis without myelopathy or radiculopathy, lumbar region; F32.9 Major depressive disorder, single episode, unspecified; E78.5 Hyperlipidemia, unspecified; F03.90 Unspecified dementia, unspecified severity, without behavioral disturbance, psychotic disturbance, mood disturbance, and anxiety; I11.9 Hypertensive heart disease without heart failure; Z79.899 Other long term (current) drug therapy; Z88.8 Allergy status to other drugs, medicaments and biological substances; Z86.73 Personal history of transient ischemic attack (TIA), and cerebral infarction without residual deficits; Z79.82 Long term (current) use of aspirin; Z91.81 History of falling; Z87.891 Personal history of nicotine dependence
CPT/HCPCS: 36415; 36416; 51701; 70450; 71045; 80048; 80053; 80061; 81003; 81015; 82550; 84443; 84484; 85025; 85610; 85730; 86850; 86900; 86901; 93005; 93306; 93880; 94640; 96365; 96366; C9113; J1953; J7050; J7620

== ENCOUNTER 2019-01-13 08:51 | Outpatient (CLI) | payer MEDICARE ==
--- NOTE | 2019-01-13 09:16 | CT ---
FCT brain noncontrast: 01/13/2019 HISTORY: Follow-up intra-axial hematoma in 78-year-old female COMPARISON: 12/29/2018 FINDINGS: The left temporoparietal intra-axial hematoma has become much less dense. Currently, only the large r egion of vasogenic edema remains. There continues to be effacement of the trigone of the left lateral ventricle by local mass effect. No obstructive hydrocephalus or midline shift. There is a small old right occipital cortical infarction that can also be seen on prior CT of 12/10/2017. There is no new he morrhage. IMPRESSION: Evolution of large left temporoparietal intra-axial hematoma, with breakdown of hematoma, becoming lo wer in density.
== END 2019-01-13 08:52 | disposition home or self-care (01) ==
LOC: TBSIIMAG 08:51
PROVIDERS: ATTEND Surgery
DX: I61.9 Nontraumatic intracerebral hemorrhage, unspecified (principal)
CPT/HCPCS: 70450

== ENCOUNTER 2020-10-18 04:07 | Inpatient (IN) | payer MEDICARE ==
[2020-10-18] MEDS ORDERED: Ondansetron ODT 4 MG TAB PO PRN (05:53)
[2020-10-18] MEDS ORDERED: niCARdipine 25 MG in Sodium Chloride 0.9% 250 ML 240 ML IVPB PRN (05:53)
[2020-10-18] MEDS ORDERED: Ondansetron PF 4 MG/2 ML Vial IVP PRN (05:53)
--- NOTE | 2020-10-18 05:59 | HP ---
TIME OF SERVICE: 511. PCP: Luis Eduardo Martinez MD. CHIEF COMPLAINT: Altered mental status. HISTORY OF PRESENT ILLNESS: I reviewed all documentation and discussed the care management of this patient with Drs. Pagan and Malcolm. I agree with the documentation found on their H and P unless otherwise stated in the following history and physical. In summary, Ms. Fay is a pleasantly demented, 80-year-old, woman with a past medical history of multiinfarct dementia, atrial fibrillation, hypertension, and prior intraparenchymal hemorrhage. She presented to the ER with an approximately 16-hour history of altered mental status from her baseline. Per the patient's daughter who was present at bedside at the time of my examination, the patient had been less interactive today. After the patient had an episode of vomiting, she became scared and brought her to the emergency room. In the ER, she was found to have a left frontal intraparenchymal hemorrhage. Neurosurgery was consulted from the ER and provided recommendations. Please see resident note for past medical, surgical, social, family histories as well as allergies and current medication list. FOCUSED PHYSICAL EXAMINATION: VITAL SIGNS: Blood pressure 121/78, on Cardene drip. Pulse 83, respiratory rate 18, pulse ox 98% on room air. GENERAL: The patient is alert and oriented x0. She is minimally verbal and will inappropriately answer questions with yes or no. She will not follow commands. CARDIOVASCULAR: Normal rate, regular rhythm with a 2/6 systolic flow murmur appreciated. PULMONARY: Clear to auscultation bilaterally. NEUROLOGIC: The patient is able to move all 4 limbs independently. She will not follow commands, and therefore, neurological examination is limited. Limited cranial nerve exam is unremarkable. PERTINENT LABORATORY FINDINGS: Hemoglobin 11. Coagulation studies normal. Creatinine 1.12 which is the patient's baseline. Urinalysis negative. SARS-CoV-2 rapid PCR negative. EKG, normal sinus rhythm. CT brain, left frontal intraparenchymal hemorrhage with [address] abdomen and pelvis, no acute processes. Chest x-ray, small left pleural effusion, but otherwise unremarkable. ASSESSMENT AND PLAN: Ms. Fay is an 80-year-old, female with past medical history of multi-infarct dementia with a history of spontaneous intracranial hemorrhages. She presented with history of altered mental status and was found to have a new left frontal intraparenchymal hemorrhage. Plan is as follows. 1. Acute left frontal intraparenchymal hemorrhage. Neurosurgery has been consulted. Recommends maintaining systolic blood pressure less than 140. The patient currently on a Cardene drip for blood pressure control. We will admit her to the ICU for close monitoring. Neurosurgery does not feel she is a surgical candidate at this time, but we will reevaluate in the morning. Hold anti-platelets, anticoagulants. N.p.o. until she can pass a bedside dysphagia screen. The patient's daughter was present during my examination and stated that the patient is a do not intubate/do not resuscitate. 2. Dementia, appears to be slightly worse than baseline. We will continue to monitor and provide medications for agitation if needed. 3. See video production intern note for further management of chronic medical problems. DISPOSITION: Inpatient ICU, greater than 2 midnights. Approximately 45 minutes of critical care time were spent with me in the care of this patient including reviewing laboratory data and imaging and discussing the plan of care and prognosis with the patient's daughter. Job ID: [id number] MTDD
--- NOTE | 2020-10-18 06:51 | PDOC.FPRHP ---
- History of Present Illness Chief Complaint: AMS, V History of Present Illness: This is an 80F with a PMH of dementia, intracranial bleed, TIAs, and HTN, who was taken to ED by her family after having AMS and an episode of vomiting. She started being somnolent and less talkative at ~9am on 10/17 and then had an episode of vomiting early in the morning on 10/18. CT brain showed a 3x5cm L frontal lobe intracranial hemorrhage with midline shift and some surrounding edema, per ED hand-off; official report pending. She is not an anticoagulation. She was also HTN on arrival, with SBP in the 170s-180s, and was started on a Cardene drip. At baseline, she is A&O x2 and conversive; currently, she is essentially nonverbal and following minimal commands. GCS of 13. Neurosurgery was consulted from the ED and recommended q1hr neuro checks, HTN control with SBP <140, and admission to the ICU. ED Course: ED: Cardene drip, Zofran 4mg IV Aung ED: Cardene drip - Allergies/Adverse Reactions Allergies Allergy/AdvReac Type Severity Reaction Status Date / Time gabapentin AdvReac Hallucinati Verified 12/26/19 09:42 ons [id number] Reductase AdvReac Verified 12/26/19 09:42 Inhibitor - Home Medications Medication Instructions Recorded Confirmed Type Citalopram Hydrobromide 20 mg PO QAM 03/22/16 10/18/20 History [Citalopram HBr] Levothyroxine Sodium [Synthroid] 100 mcg PO QAM 03/22/16 10/18/20 History Acetaminophen [Tylenol Extra 1,000 mg PO Q6HR tab 12/11/17 10/18/20 Rx Strength] Donepezil HCl [Aricept] 5 mg PO HS 12/26/18 10/18/20 History Lisinopril 2.5 mg PO BID #0 12/28/18 10/18/20 Rx ALPRAZolam 0.125 mg PO TID 10/18/20 10/18/20 History Carvedilol 3.125 mg PO BID 10/18/20 10/18/20 History Ezetimibe 10 mg PO DAILY 10/18/20 10/18/20 History Fexofenadine HCl [Sabrina Allergy] 60 mg PO DAILY 10/18/20 10/18/20 History Pravastatin Sodium [Pravachol] 40 mg PO HS 10/18/20 10/18/20 History traZODone HCl [Trazodone HCl] 100 mg PO QPM 10/18/20 10/18/20 History - History PMHx: hx of brain bleed x2, hx of TIA x2, HTN, HLD, CAD, CKD3, hypothyroidism, dementia PSHx: hysterectomy, R carotid endarterectomy FHx: noncontributory Social: lives with daughter. Hx of smoking, unknown amt for unknown amt of time; quit 20yrs ago. Daughter denies alcohol/drug use - Review of Systems ROS unobtainable: due to mental status - Vital signs BP: 152/93, MAP: 112, Pulse: 84, Resp: 15, Temp: 99.4 (Oral), Pain: UTR, O2 sat: 95 on (Room Air) - Physical Exam Constitutional: NAD, well developed -Constitutional: Awake and alert. Orientation difficult to assess d/t pt being nonverbal currently. GCS 13 HEENT: normocephalic and atraumatic, PERRLA, grossly normal hearing Neck: supple Chest: no-tender to palpation Heart: RRR, normal S1/S2, no murmurs/rubs/gallops, pulses present Lungs: CTAB, no respiratory distress, good air movement Abdomen: soft, non-tender, bowel sounds present Musculoskeletal: normal structure, normal tone -Neurological: Difficult to assess given pt's mental status Skin: no rash/lesions FMR H&P: Results - EKG Interpretation EKG: NSR at 83bpm FMR H&P: A/P - Plan This is an 80F who was brought to the ED after 1 day of AMS and vomiting, found to have an intracranial hemorrhage. Intracranial hemorrhage - Per ED checkout, brain CT showed 3x5cm bleed in the L frontal lobe with midline shift and mild surrounding edema - Hx of brain hemorrhage x2 - Abd/pelvis CT, CXR reads pending - Neurosurgery consulted from the ED, appreciate recs * SBP <140. Cardene gtt * q1hr neuro checks, NIH stroke scale - GCS 13 on arrival with limited ability to follow instructions - Hold home ASA - Admit to ICU - Seizure, aspiration, fall precautions. Strict bedrest. Bedside swallow pending. HTN - Chronic, POA - Neurosurg recs, see above - Plan as above - Continue home Lisinopril and Coreg Suspected UTI - UA 2+ bacteria, 11-20 RBCs, 150 blood - Will attempt to obtain UCx from urine collected in CS - Empirically tx with Rocephin - Possible contribution to AMS HUY on CKD3 - eGFR 47. Baseline 42-66 - Cr 1.12, baseline 0.9 Dementia - Per daughter, baseline A&O x2, very conversive - On arrival, essentially nonverbal. * Hemorrhage contributing * UTI, if present, likely contributing - Delirium precautions Hypothyroidism - Chronic - Continue home Levothyroxine HLD - Chronic - Continue home pravastatin and ezetimibe - Monitor with am BMP CAD - Hx of R carotid endarterectomy - Hold ASA Hx of TIA - TIA x2 IVF: KVO Diet: NPO pending bedside swallow, then HH-LS GI Ppx: home Protonix DVT Ppx: SCDs Code: DNAR PCP: Dr. Martienz Dispo: admit to ICU, follow neurosurgery recommendations. eLOS >48hrs. FMR H&P: Upper Level - Pertinent history PCP: Luis Eduardo Martinez HPI: 80YOF with a PMH notable for anxiety, HTN, depression, CAD, Hx TIAs & Hx of ICH x2 presenting as a transfer from ER in [facility] after presenting there for AMS and N/V. Of note, the history was obtained from the admitting ER physician and her daughter & MPOA who was present at bedside as she was minimally verbal at the time of admission & has a h/o underlying dementia. Per the patients daughter, the patient had reportedly been acting more altered starting early yesterday AM. Over the course of the day her mentation continued to decline and she eventually developed nausea & vomited once at home which prompted her daughter to take her to the ED for further evaluation. Per the admitting ER physician, in the outside ED the patient underwent a head CT and was noted to have a left frontal lobe hemorrhage with surrounding edema & midline shift measuring ~5x3cm in size. Neurosurgery was therefore consulted and recommended that the patient be admitted to the CCU on a cardene gtt to maintain SBPs <140 & receive hourly neurochecks. ED course: Cardene gtt & 4mg IV Zofran given in CS ER. Please see restaurant management internship note for pertinent PMH - Pertinent findings Labs/Imaging: CT brain: reported left frontal lobe hemorrhage with surrounding edema & midline shift measuring ~5x3cm in size Abd/pelvis CT: read pending CXR: read pending EKG: NSR @83 bpm WBC 13 Hgb 11 Cr 1.12 eGFR 47 UA: 11-20 RBCs & 2+ bacteria REVIEW OF SYSTEMS: 12 point ROS unable to be performed 2/2 patients limited verbal capacity at time of interview Vitals: BP: 156/63 HR: 85 RR: 25 O2 sat: 96% on RA Tmax: 99.6F PHYSICAL EXAMINATION: General: sitting up in bed in NAD HEENT: normocephalic atraumatic; MMM; PERRL Neck: Supple. Full ROM. Heart/Cardiovascular System: RRR, no murmurs noted Lungs/Respiratory System: CTAB Abdomen/Gastro-Intestinal System: soft w/o TTP, normal bowel sounds Extremities: Warm w/ intact pulses bilaterally. No edema noted. Neuro: grossly non-focal but unable to assess all social work professor or full motor function as patient with a GCS of 13 with limited speech & not following commands at time of exam Skin: intact w/o lesions or rashes noted - Plan Date/Time: 10/18/20 0651 [place], have evaluated this patient and agree with findings/plan as outlined by restaurant management internship resident. Pertinent changes/additions are listed here. A/P: 80YOF with a PMH notable for anxiety, HTN, depression, CAD, Hx TIAs & Hx of ICH x2 presenting as a transfer from ER in [facility] after presenting there for AMS and N/V & was subsequently found to have a R frontal lobe ICH. Acute Right frontal ICH -NS consulted from the ED & did not recommend surgical intervention at this time. Recommended the patient be admitted to medical service in the CCU on a cardene gtt to maintain SBPs <140. Also recommended Q1HR neurochecks. -Will admit patient to CCU per NS recs & continue cardene gtt & titrate to maintain BP goal as stated above. UTI -WBC elevated at 13 on presentation & UA was notable for 11-20 RBCs & 2+ bacteria @ outside ED. Will attempt to call them this AM to order a Cx as do not see that one was ordered by ED physician. Will start rocephin pending those Cx results as this could also be contributing to the patients AMS. Normocytic anemia -Hgb 11.0 on presentation. Needs an outpatient workup. Suspected CKDIII -Per chart review renal function on presentation appears to be within patients baseline range with a Cr of 1.12 & an eGFR of 47. Will continue to monitor renal function closely and renally dose meds PRN. HTN Anxiety/depression Hx TIA x2 Hx ICH x2 PVD s/p R carotid endarterectomy hypothyroidism -Will resume home meds for all chronic conditions noted above. PCP: FELIBERTO- Dr. Richie Robert ABx: Zuhair IVFs: SL VTE PPX: SCDs GI PPX: None Code status: DNR-DNI Dispo: Will admit to the CCU for close monitoring of neuro status & BPs per NS recs. Anticipated LOS >2 midnights pending clinical course. Addendum - Attending - Attending Attestation Date/Time: 10/18/20 9921 I personally evaluated the patient and discussed the management with Dr. Peter/Malcolm I agree with the History, Examination, Assessment and Plan documented above with any addition or exceptions noted below. see my dictated H&P for details. Doc# [id number]
--- NOTE | 2020-10-18 08:06 | CON ---
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 At baseline, she does have dementia as well as expressive and receptive aphasia. She is normally A and O x2 and lives at home with her daughter. She is DNR/DNI. After some worsening confusion, she was brought for additional evaluation and received a noncontrast head CT, which is notable for a new acute large left frontal intraparenchymal hemorrhage. Neurosurgery was consulted for this acute event. The patient does not take any anticoagulants. Her PT, INR, and platelets are all within acceptable limits. I visited the patient in the ER. She is awake and sitting up comfortably. She is moving all 4 easily and will follow some simple commands. She is nonverbal at this time. MRI brain with and without and MRA and MRV have been ordered, but are pending. PAST MEDICAL HISTORY: Hypertension, hyperlipidemia, coronary artery disease, chronic kidney disease, hypothyroidism, dementia, prior intracranial hemorrhage in left parietotemporal in December of 2018. PAST SURGICAL HISTORY: Hysterectomy and right carotid endarterectomy. FAMILY HISTORY: Noncontributory. SOCIAL HISTORY: She lives at home with her daughter. She does not smoke, drink, or use any drugs. She is DNR/DNI. REVIEW OF SYSTEMS: Unobtainable due to the patient's current condition. PHYSICAL EXAMINATION: VITAL SIGNS: Stable. Blood pressure is currently 122/70. GENERAL: The patient is nonverbal at this time. HEENT: Head; normocephalic, atraumatic. Eyes; PERRLA. Extraocular movements intact. ENT; pink, intact, and moist. NECK: She is moving easily. No evidence of nuchal rigidity. CARDIAC: Regular rate and rhythm. PULMONARY/CHEST: Symmetric chest expansion. No evidence of dyspnea. MUSCULOSKELETAL: No deformities or trauma. She is moving all 4 easily spontaneously. NEUROLOGIC: She is awake and alert, but she is not currently oriented to person, place, or time. She is moving all 4 easily and spontaneously in the bed. ASSESSMENT AND PLAN: The patient has acute left frontal intraparenchymal hemorrhage. 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 She should not be given any anticoagulation. We will monitor her blood pressure closely and currently, she is on a Cardene drip for management of this. She has been admitted to the Medicine Team. We will follow along. I have discussed this with Dr. Fitzgerald who is in agreement. Job ID: [id number]
[2020-10-18] MEDS ORDERED: cefTRIAXone\\ROCEPHIN 1 GM VIAL ONE (08:09)
[2020-10-18] MEDS: cefTRIAXone\\ROCEPHIN 1 GM in Sodium Chloride 0.9% 100 ML IVPB SCH (08:15)
[2020-10-18] MEDS ORDERED: niCARdipine 20MG In NaCl 0 MG/0 ML BAG ONE (08:40)
[2020-10-18] MEDS ORDERED: niCARdipine 20MG In NaCl 20 MG/200 ML BAG ONE ×4 (08:42→23:50)
--- NOTE | 2020-10-18 09:47 | MRI ---
Exam: MR angiogram of the [place] HISTORY: Left frontal intraparenchymal hemorrhage. COMPARISON: None TECHNIQUE: MR angiography of the [place] performed in the axial plane, utilizing 3-D time-of -flight imaging and 2-D [id number] imaging. Three-dimensional reformatted images are submitted for interpretation. FINDINGS: Symmetric flow related signal in distal cervical and intracranial internal carotid arteries Anterior circulation: Symmetric flow related signal in the A1 segment, proximal A2 segment, M1 segmen t and proximal MCA branches At the level of hemorrhage, no obvious vascular malformations. Hemorrhage and mass effect limits eval uation Intracranial vertebral arteries demonstrate flow related signal. Left vertebral artery is the dominan t vertebral artery and supplies the basilar artery. Right vertebral artery has a PICA termination Posterior circulation: There is appropriate flow related signal in the basilar artery and bilateral P 1 segments. IMPRESSION: 1. No evidence of avascular malformation at the [place]. 2. Limited evaluation of the vessels/vasculature and the level of the left frontal hematoma. Follow-u p imaging after hematoma resolves is recommended.
[2020-10-18] MEDS: ALPRAZolam 0.25 MG TAB PO SCH ×3 (09:52→23:56)
[2020-10-18] MEDS: Citalopram 20 MG TAB PO SCH (09:53)
[2020-10-18] MEDS: Carvedilol 3.125 MG TAB PO SCH ×3 (09:53→23:50)
[2020-10-18] MEDS: Ezetimibe 10 MG TAB PO SCH (09:53)
[2020-10-18] MEDS: Loratadine 10 MG TAB PO SCH (09:54)
[2020-10-18] MEDS: Lisinopril 2.5 MG TAB PO SCH ×3 (09:55→23:49)
--- NOTE | 2020-10-18 10:12 | MRI ---
MRI BRAIN WITH AND WITHOUT CONTRAST: DATE: 10/18/2020 HISTORY: 80-year-old female COMPARISON: 10/18/2020 CT 05/09/2016 MRI. TECHNIQUE: Multiplanar, multisequence MRI of the brain performed pre- and post-IV injection of gadolinium based contrast agent. FINDINGS: There is a large, approximately 5.5 x 3.5 x 6 cm left frontal lobe intra-axial hematoma. There is gómez rounding vasogenic edema, with the total abnormal region measuring approximately 8 x 4.5 x 6 cm. The hematoma is new since the MRI of 05/09/2016, and is probably unchanged in size compared to today's CT. It causes left to right midline shift of 0.7 cm, effaces left frontal sulci, including at the cerebra l convexity, and decompresses, distorts, and compresses the frontal horn of the left lateral ventricle. It also causes distortion of the body of the left lateral ventricle and mild distortion of the right frontal horn. It has mixed signal intensity, with various stages of blood: Deoxyhemoglobin, intracellular methemoglobin, and extracellular methemoglobin. There is increased enhancement of leptomeningeal vessels, probably representing local venous congesti on from the mass effect, but no definitive evidence of nodular tumoral enhancement is identified. There is no dural venous sinus thrombosis There is a small old right occipital cortical infarction. There is hemosiderin staining of extensive right parietal and occipital gyri, as demonstrated on the 05/09/2016. There is also hemosiderin staining of right frontal gyri extensively, which is new since 05/09/2016. Chronic ischemic white matter changes are mild to moderate. Basal cisterns are patent. Flow voids are grossly maintained in major central arteries of the [place]. IMPRESSION: 1) large left frontal lobe intra-axial hematoma with acute and subacute components of hemorrhage, cau sing vasogenic edema and significant mass effect with subfalcine herniation. 2) this has not significantly changed in size since CT earlier at 2:31 AM last night. 3) the cause of the hematoma is not evident. 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 The cause of superficial siderosis is often unknown. One possibility is RCVS (reversible cerebral vasoconstriction syndrome). 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
[2020-10-18] MEDS ORDERED: Acetaminophen 500 MG TAB ONE ×2 (13:00→18:21)
[2020-10-18] MEDS: Acetaminophen 500 MG TAB PO SCH ×2 (13:16→18:32)
[2020-10-18] MEDS ORDERED: Magnevist 469MG/ML 20 ML VIAL ONE (13:42)
--- NOTE | 2020-10-18 17:06 | PDOC.PALCO ---
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 She was noted to have an increase in confusion and one episode of vomiting. Know to have dementia and expressive dementia at baseline as per daughter. Oriented X2 and lives in an independent home setting with her daughter as primary caregiver. In the ER CT identified large left frontal intraparenchymal hemorrhage. She will be admitted to CCU for higher level of care and further management. - Pertinent PMH HTN, HDL, CAD, CKD, Hypothyroid, Dementia, - Social History Smoking Status: Never smoker Smoking: no tobacco exposure Alcohol Use: none Drug Use History: none Living Situation: independent - Allergies Allergies/Adverse Reactions: Allergies Allergy/AdvReac Type Severity Reaction Status Date / Time gabapentin AdvReac Hallucinati Verified 12/26/19 09:42 ons Wkjckek-Aoj-Prk Reductase AdvReac Verified 12/26/19 09:42 Inhibitor - Subjective Awake, alert. No facial grimace noted, appears confused. Aphagic, mumbles. - ROS Non Response: due to mental status - Objective Vital Signs: Vital Signs - Most Recent Temp Pulse Resp BP Pulse Ox 80 129/62 93 L 10/18/20 13:35 10/18/20 15:12 10/18/20 13:35 Palliative Performance Scale: 30 - Physical Exam Constitutional: NAD, ill appearing HEENT: EOMI, moist MMs, sclera anicteric Respiratory: no wheezing, unlabored breathing Cardiovascular: RRR Gastrointestinal: soft, non-tender Musculoskeletal: no cyanosis, no clubbing Neurology: moves all 4 limbs Skin: cap refill <2 seconds, no lesions, no rash Deviation from normal: Unable to fully appreciate orientation - Problem List (1) Dementia Code(s): F03.90 - UNSPECIFIED DEMENTIA WITHOUT BEHAVIORAL DISTURBANCE Current Visit: Yes Status: Acute (2) Palliative care encounter Code(s): Z51.5 - ENCOUNTER FOR PALLIATIVE CARE Current Visit: Yes Status: Acute (3) Acute spontaneous intraparenchymal intracranial hemorrhage Code(s): I62.9 - NONTRAUMATIC INTRACRANIAL HEMORRHAGE, UNSPECIFIED Current Visit: No Status: Acute (4) Aphasia due to acute stroke Code(s): I63.9 - CEREBRAL INFARCTION, UNSPECIFIED; R47.01 - APHASIA Current Visit: No Status: Acute (5) HTN (hypertension) Code(s): I10 - ESSENTIAL (PRIMARY) HYPERTENSION Current Visit: No Status: Acute (6) Hypothyroidism Code(s): E03.9 - HYPOTHYROIDISM, UNSPECIFIED Current Visit: No Status: Acute - Plan/Recommendations Plan: Met with patient in emergency room, awaiting CCU bed, Introduced Palliative care. Confirmation of DNAR Palliative Care will support daughter, and revisit goal of care. [35] minutes spent on this encounter with >50% of the time in counseling and coordination of care. Thank you for this very appropriate consult.
[2020-10-18] MEDS ORDERED: Pravastatin Sodium 20 MG TAB PO SCH ×2 (21:00)
[2020-10-18] MEDS ORDERED: traZODone HCl 50 MG TAB PO SCH (21:00)
[2020-10-18] MEDS ORDERED: Donepezil HCl 5 MG TAB PO SCH (21:00)
[2020-10-18] MEDS ORDERED: traZODone HCl 50 MG TAB ONE (23:14)
[2020-10-18] MEDS ORDERED: ALPRAZolam 0.25 MG TAB ONE (23:51)
[2020-10-19] MEDS: Acetaminophen 500 MG TAB PO SCH ×3 (01:00→13:21)
[2020-10-19] MEDS ORDERED: Norepinephrine 8 MG/0.9% NS 0 ML ONE (03:24)
[2020-10-19] MEDS ORDERED: Atropine Sulfate 1 mg/10 ml Syringe ONE (03:24)
[2020-10-19] MEDS ORDERED: Acetaminophen 500 MG TAB ONE (05:43)
[2020-10-19] MEDS ORDERED: Levothyroxine Sodium 100 MCG TAB PO SCH (06:00)
[2020-10-19 06:44] LABS: #Basophils 0.1 thou/uL (0.0-0.2); #Lymphocytes 1.7 thou/uL (1.20-3.40); #Monocytes 1.4 thou/uL (0.11-0.59); #Neutrophils 10.5 thou/uL (1.40-6.50); %Basophils 0.4 % (0.0-1.0); %Eosinophils 0.2 % (0.0-10.0); %Lymphocytes 12.3 % (21.0-51.0); %Monocytes 10.1 % (0.0-10.0); Hemoglobin 11.7 g/dL (12.0-16.0); Mean Corpuscular HGB CONC 33.4 g/dL (32.0-36.0); Mean Corpuscular Hemoglobin 30.2 pg (27.0-31.0); Mean Corpuscular Volume 90.6 fL (78.0-98.0); Mean Platelet Volume 8.4 fL (7.4-10.4); Platelet Count 220 thou/uL (130-400); RBC Distribution Width 12.8 % (11.5-14.5); Red Blood Cell (RBC) Count 3.86 mill/uL (4.20-5.40); White Blood Cell (WBC) Count 13.6 thou/uL (4.8-10.8)
--- NOTE | 2020-10-19 07:03 | PDOC.FM ---
- Subjective Subjective: ER nursing staff stopped the Cardene ggt last night due to normal BP's. there have been sever since then >140 so the cardene ggt was restarted this AM. When restarted BP's drop to 100-110's. NS contacted for further recs and care plan., Family meeting with neurosurgery this morning to take place. Palliative care consulted Pt asleep and does not awaken - Objective MAR Reviewed: Yes Vital Signs & Weight: Vital Signs (12 hours) Temp Pulse Resp BP BP Pulse Ox 10/19/20 06:00 98.2 F 78 16 158/72 H 18 L 10/19/20 05:00 76 17 143/71 H 94 L 10/19/20 04:00 78 18 151/70 H 95 10/19/20 03:00 74 18 131/70 94 L 10/19/20 02:45 77 18 132/64 94 L 10/19/20 01:00 18 L 18 106/59 L 93 L 10/19/20 00:45 76 17 114/61 92 L 10/19/20 00:30 74 15 114/61 94 L 10/19/20 00:15 78 16 126/65 92 L 10/19/20 00:00 78 12 134/56 L 94 L 10/18/20 23:49 85 146/61 H 10/18/20 23:45 84 20 146/61 H 96 10/18/20 23:30 87 20 149/64 H 93 L 10/18/20 23:15 87 18 142/65 H 93 L 10/18/20 23:00 85 18 136/58 L 93 L 10/18/20 22:45 83 18 134/50 L 93 L 10/18/20 22:30 81 20 134/57 L 94 L 10/18/20 22:15 85 21 H 141/59 H 94 L 10/18/20 22:00 86 18 136/62 94 L 10/18/20 21:45 84 18 134/61 94 L 10/18/20 21:30 84 19 133/60 94 L 10/18/20 21:15 86 18 139/64 93 L 10/18/20 21:00 85 19 148/63 H 92 L 10/18/20 20:45 85 18 129/63 92 L 10/18/20 20:30 86 18 136/63 92 L 10/18/20 20:15 86 18 148/66 H 94 L 10/18/20 20:00 84 18 139/62 94 L 10/18/20 19:45 82 16 136/61 94 L 10/18/20 19:30 83 15 138/58 L 94 L Weight Weight 79.379 kg Most Recent Monitor Data Heart Rate from ECG 79 NIBP 143/74 NIBP BP-Mean 97 Respiration from ECG 18 SpO2 93 I&O: 10/18/20 10/19/20 10/20/20 06:59 06:59 06:59 Intake Total 200 Output Total 170 Balance 30 Result Diagrams: 10/19/20 06:33 10/19/20 06:33 Radiology Reviewed by me: Yes (MRI and MRV reviewed ) Phys Exam - Physical Examination asleep. GCS: 7 HEENT: moist MMs Neck: supple Respiratory: wheezing present Cardiovascular: RRR Gastrointestinal: no distention, positive bowel sounds Musculoskeletal: no edema GCS 7, protecting airway and pulse ox 99% on RA Deviation from normal: awakens slightly to painful sternal rub Dx/Plan (1) UTI (urinary tract infection) Status: Acute (2) Dementia Code(s): F03.90 - UNSPECIFIED DEMENTIA WITHOUT BEHAVIORAL DISTURBANCE Status: Acute (3) Palliative care encounter Code(s): Z51.5 - ENCOUNTER FOR PALLIATIVE CARE Status: Acute (4) Acute spontaneous intraparenchymal intracranial hemorrhage Code(s): I62.9 - NONTRAUMATIC INTRACRANIAL HEMORRHAGE, UNSPECIFIED Status: Acute (5) HLD (hyperlipidemia) Code(s): E78.5 - HYPERLIPIDEMIA, UNSPECIFIED Status: Acute (6) HTN (hypertension) Code(s): I10 - ESSENTIAL (PRIMARY) HYPERTENSION Status: Acute - Plan Plan: 80 y/o F with a PMH notable for anxiety, HTN, depression, CAD, Hx TIAs & Hx of ICH x2 presenting as a transfer from ER in [facility] after presenting there for AMS and N/V & was subsequently found to have a R frontal lobe ICH. Acute and subacute Left frontal ICH -NS consulted from the ED & did not recommend surgical intervention at this time. Recommended the patient be admitted to medical service in the CCU on a cardene gtt to maintain SBPs <140. Also recommended Q1HR neurochecks. -Will admit patient to CCU per NS recs & continue cardene gtt & titrate to maintain BP goal as stated above. - Has been ER hold since admission - MRI: Large L-frontal intra-cucial hematoma with acute and subacute hemorrhage with vasogenic edema and significant mass effect with subfalcine herniation. See radiology report for full details. - palliative care consulted and family care meeting this morning with NS to discuss prognosis and goals of care - GCS 7 on 10/19. UTI -WBC elevated at 13 on presentation & UA was notable for 11-20 RBCs & 2+ bacteria @ outside ED. - started daily rocephin IV, and ordered urine ccx from original pre-antibiotic urine. Normocytic anemia - Hgb 11.0 on presentation. - likely anemia of chronic disease Suspected CKDIII vs HUY -Per chart review renal function on presentation appears to be within patients baseline range with a Cr of 1.12 & an eGFR of 47. Will continue to monitor renal function closely and renally dose meds PRN. - Cr improved to 0.82, likely HUY with this improvement. HTN- holding home meds while on cardene drip Anxiety/depression Hx TIA x2 Hx ICH x2 PVD s/p R carotid endarterectomy hypothyroidism -Will resume home meds for all chronic conditions noted above. Dispo: stable, CCU >48 hr hx stay Addendum - Attending - Attending Attestation Date/Time: 10/19/20 1008 I personally evaluated the patient and discussed the management with Dr. Tariq. I agree with the History, Examination, Assessment and Plan documented above with any addition or exceptions noted below.
[2020-10-19 07:04] LABS: Anion Gap 11 mmol/L (10-20); BUN (Urea Nitrogen) 18 mg/dL (9.8-20.1); Calc. Creatinine Clearance 66 mL/min (70-130); Carbon Dioxide 26 mmol/L (23-31); Chloride 105 mmol/L (98-107); Glucose 124 mg/dL (83-110); Potassium 3.7 mmol/L (3.5-5.1); Sodium 138 mmol/L (136-145)
[2020-10-19] MEDS ORDERED: cefTRIAXone\\ROCEPHIN 1 GM VIAL ONE (07:50)
[2020-10-19] MEDS: cefTRIAXone\\ROCEPHIN 1 GM in Sodium Chloride 0.9% 100 ML IVPB SCH (07:57)
[2020-10-19] MEDS ORDERED: ALPRAZolam 0.25 MG TAB ONE (09:00)
[2020-10-19] MEDS: ALPRAZolam 0.25 MG TAB PO SCH (10:15)
[2020-10-19] MEDS: Carvedilol 3.125 MG TAB PO SCH (10:16)
[2020-10-19] MEDS: Citalopram 20 MG TAB PO SCH (10:16)
[2020-10-19] MEDS: Ezetimibe 10 MG TAB PO SCH (10:16)
[2020-10-19] MEDS: Lisinopril 2.5 MG TAB PO SCH (10:16)
[2020-10-19] MEDS: Loratadine 10 MG TAB PO SCH (10:16)
--- NOTE | 2020-10-19 11:27 | PRG ---
DATE OF SERVICE: 10/19/2020 The patient is seen and examined. I agree with Yulisa Marcello's evaluation on 10/18/2020. The patient is an 80-year-old woman with a history of prior left temporal intracranial hemorrhage last year, thought to be amyloid angiopathy, who had been living at home under the care of her daughter with some elements of dementia and poor ambulation, who had sudden worsening of her mental status, was brought to the emergency room yesterday. She was found to have a large left frontal intracerebral hemorrhage. Additional imaging has not revealed an etiology for the hemorrhage. There is some chronic blood products in the contralateral hemisphere suggesting multiple prior old hemorrhages. IMPRESSION AND PLAN: Large left frontal hemorrhage, presumed amyloid angiopathy. The patient currently is arousable and nonfocal, but will not follow commands or say anything other than some simple words. No surgical intervention is indicated at this time. No further imaging is needed. I had a lengthy discussion with the family. I anticipate a very slow and gradual recovery, although not back to her baseline, which was already quite limited. She will likely need long-term placement. No further neurosurgical recommendations at this time. Job ID: [id number]
[2020-10-19] MEDS ORDERED: niCARdipine 20MG In NaCl 20 MG/200 ML BAG ONE (14:00)
[2020-10-19] MEDS ORDERED: Pantoprazole 40 MG VIAL ONE (14:26)
[2020-10-19] MEDS: Lactated Ringer's 1,000 ML IV SCH ×2 (14:48→22:51)
[2020-10-19] MEDS ORDERED: hydrALAZINE 20 MG/ML VIAL ONE (15:45)
[2020-10-19] MEDS: hydrALAZINE 20 MG/ML VIAL SLOW IVP PRN ×2 (15:49→19:07)
[2020-10-19] MEDS ORDERED: Labetalol HCl 100 MG/20 ML VIAL SLOW IVP PRN ×2 (17:44→21:39)
[2020-10-19] MEDS ORDERED: Labetalol HCl 100 MG/20 ML VIAL ONE (18:07)
[2020-10-20] MEDS ORDERED: hydrALAZINE 20 MG/ML VIAL ONE ×2 (00:49→08:18)
[2020-10-20] MEDS: Lactated Ringer's 1,000 ML IV SCH ×3 (06:12→23:14)
[2020-10-20] MEDS ORDERED: Acetaminophen 650 MG Suppository ONE (06:38)
[2020-10-20] MEDS: Acetaminophen 650 MG Suppository PR PRN ×2 (06:47→17:42)
--- NOTE | 2020-10-20 06:54 | PDOC.FM ---
- Subjective Subjective: Pt's BP remained 150-140's overnight and required many IV medications to keep at goal. nurse states she is more alert than yesterday and answering yes and no questions. Attempting a bedside swallow study this morning - Objective MAR Reviewed: Yes Vital Signs & Weight: Vital Signs (12 hours) Temp Pulse Resp BP BP Pulse Ox 10/20/20 06:00 98.7 F 72 18 150/72 H 98 10/20/20 00:00 80 20 135/64 99 10/19/20 21:33 98.4 F 70 24 H 148/67 H 99 10/19/20 21:29 70 155/80 H 10/19/20 21:00 82 22 H 139/63 10/19/20 19:20 77 18 131/58 L 96 10/19/20 19:07 84 145/68 H 10/19/20 19:00 99.1 F 77 18 139/63 96 Weight Weight 79.379 kg Most Recent Monitor Data Heart Rate from ECG 79 NIBP 143/74 NIBP BP-Mean 97 Respiration from ECG 18 SpO2 93 I&O: 10/18/20 10/19/20 10/20/20 06:59 06:59 06:59 Intake Total 200 3233 Output Total 170 1135 Balance 30 8 Result Diagrams: 10/19/20 06:33 10/19/20 06:33 Phys Exam - Physical Examination awakens to loud voice and opens eyes. HEENT: moist MMs, sclera anicteric Neck: no JVD, supple Respiratory: no wheezing, no rales, clear to auscultation bilateral Cardiovascular: RRR, no significant murmur Gastrointestinal: soft, no distention, positive bowel sounds Musculoskeletal: no edema, pulses present GCS score 8, non-verbal Skin: normal turgor, cap refill <2 seconds Dx/Plan (1) UTI (urinary tract infection) Status: Acute (2) Dementia Code(s): F03.90 - UNSPECIFIED DEMENTIA WITHOUT BEHAVIORAL DISTURBANCE Status: Acute (3) Palliative care encounter Code(s): Z51.5 - ENCOUNTER FOR PALLIATIVE CARE Status: Acute (4) Acute spontaneous intraparenchymal intracranial hemorrhage Code(s): I62.9 - NONTRAUMATIC INTRACRANIAL HEMORRHAGE, UNSPECIFIED Status: Acute (5) HLD (hyperlipidemia) Code(s): E78.5 - HYPERLIPIDEMIA, UNSPECIFIED Status: Acute (6) HTN (hypertension) Code(s): I10 - ESSENTIAL (PRIMARY) HYPERTENSION Status: Acute - Plan Plan: 80 y/o F with a PMH notable for anxiety, HTN, depression, CAD, Hx TIAs & Hx of ICH x2 presenting as a transfer from ER in [facility] after presenting there for AMS and N/V & was subsequently found to have a R frontal lobe ICH. Acute and subacute Left frontal ICH -NS consulted from the ED & did not recommend surgical intervention at this time. Recommended the patient be admitted to medical service in the CCU on a cardene gtt to maintain SBPs <140. Also recommended Q1HR neurochecks. Pt has been converted to IV BP medications and off the Cardene ggt as of 10/19. Re-eval for swallow safety and convert to PO it able. BP control loosened to sys <[address] Fitzgerald. - Has been ER hold since admission - MRI: Large L-frontal intra-cucial hematoma with acute and subacute hemorrhage with vasogenic edema and significant mass effect with subfalcine herniation. See radiology report for full details. - palliative care consulted and family care meeting this morning with NS to discuss prognosis and goals of care - GCS 7 on 10/19. GCS 8 10/20. UTI -WBC elevated at 13 on presentation & UA was notable for 11-20 RBCs & 2+ bacteria @ outside ED. - started daily rocephin IV, and ordered urine ccx from original pre-antibiotic urine. Normocytic anemia - Hgb 11.0 on presentation. - likely anemia of chronic disease Suspected CKDIII vs HUY -Per chart review renal function on presentation appears to be within patients baseline range with a Cr of 1.12 & an eGFR of 47. Will continue to monitor renal function closely and renally dose meds PRN. - Cr improved to 0.82, likely HUY with this improvement. HTN- holding home meds while NPO. re-eval swallow safety and consider restarting home meds vs new BP regimen. Anxiety/depression Hx TIA x2 Hx ICH x2 PVD s/p R carotid endarterectomy hypothyroidism -Will resume home meds for all chronic conditions noted above once safe to swallow Dispo: stable, CCU >48 hr hx stay Addendum - Attending - Attending Attestation Date/Time: 10/20/20 2125 I personally evaluated the patient and discussed the management with Dr. Tariq. I agree with the History, Examination, Assessment and Plan documented above with any addition or exceptions noted below.
[2020-10-20] MEDS: hydrALAZINE 20 MG/ML VIAL SLOW IVP PRN ×3 (08:23→22:03)
[2020-10-20] MEDS: Ezetimibe 10 MG TAB PO SCH (09:22)
[2020-10-20] MEDS ORDERED: Pantoprazole 40 MG VIAL ONE (09:23)
[2020-10-20] MEDS ORDERED: cefTRIAXone\\ROCEPHIN 1 GM VIAL ONE (09:23)
[2020-10-20] MEDS: Pantoprazole 40 MG VIAL IVP SCH (09:29)
[2020-10-20] MEDS: cefTRIAXone\\ROCEPHIN 1 GM in Sodium Chloride 0.9% 100 ML IVPB SCH (09:29)
[2020-10-20] MEDS ORDERED: Labetalol HCl 100 MG/20 ML VIAL ONE (09:34)
[2020-10-20] MEDS: Labetalol HCl 100 MG/20 ML VIAL SLOW IVP PRN ×4 (09:38→23:21)
[2020-10-21] MEDS: Labetalol HCl 100 MG/20 ML VIAL SLOW IVP PRN ×3 (04:59→21:49)
[2020-10-21] MEDS: hydrALAZINE 20 MG/ML VIAL SLOW IVP PRN ×2 (08:30→17:26)
[2020-10-21] MEDS: Lactated Ringer's 1,000 ML IV SCH ×2 (08:30→17:26)
[2020-10-21] MEDS: Pantoprazole 40 MG VIAL IVP SCH (08:31)
[2020-10-21] MEDS: Ezetimibe 10 MG TAB PO SCH (08:52)
[2020-10-21] MEDS: cefTRIAXone\\ROCEPHIN 1 GM in Sodium Chloride 0.9% 100 ML IVPB SCH (10:19)
--- NOTE | 2020-10-21 10:50 | PDOC.FM ---
- Subjective Subjective: no acute overnight events pt awake when I entered the room. She was non-verbal Elevated BP's overnight with IV medications given. ordered a clonidine patch Speech saw pt again this morning and cleared for diet with risk. family agreeable per conversation with daughter karen to risk of aspiration for feeding. Also she and other children of pt believe it is the patients wish to be placed in hospice care. - Objective MAR Reviewed: Yes Vital Signs & Weight: Vital Signs (12 hours) Temp Pulse Resp BP BP Pulse Ox 10/21/20 10:24 86 163/77 H 10/21/20 08:50 75 178/83 H 10/21/20 08:30 76 192/89 H 10/21/20 08:00 98.4 F 80 20 192/89 H 97 10/21/20 04:59 78 10/21/20 04:53 97.7 F 86 20 174/88 H 96 10/21/20 00:36 168/75 H 10/20/20 23:14 98.4 F 78 20 194/90 H 97 10/20/20 22:50 173/77 H Weight Weight 82.554 kg Most Recent Monitor Data Heart Rate from ECG 79 NIBP 143/74 NIBP BP-Mean 97 Respiration from ECG 18 SpO2 93 I&O: 10/20/20 10/21/20 10/22/20 06:59 06:59 06:59 Intake Total 3233 1942.5 Output Total 1135 1950 Balance 2098 -7.5 Result Diagrams: 10/19/20 06:33 10/19/20 06:33 Phys Exam - Physical Examination GCS 9, awake HEENT: moist MMs, sclera anicteric Neck: supple, full ROM Respiratory: no wheezing, no rales, no rhonchi, clear to auscultation bilateral Cardiovascular: RRR, no significant murmur, no rub Gastrointestinal: soft, no distention, positive bowel sounds Musculoskeletal: no edema, pulses present awake, non-verbal, eyes open and does not follow commands Dx/Plan (1) UTI (urinary tract infection) Status: Acute (2) Dementia Code(s): F03.90 - UNSPECIFIED DEMENTIA WITHOUT BEHAVIORAL DISTURBANCE Status: Acute (3) Palliative care encounter Code(s): Z51.5 - ENCOUNTER FOR PALLIATIVE CARE Status: Acute (4) Acute spontaneous intraparenchymal intracranial hemorrhage Code(s): I62.9 - NONTRAUMATIC INTRACRANIAL HEMORRHAGE, UNSPECIFIED Status: Acute (5) HLD (hyperlipidemia) Code(s): E78.5 - HYPERLIPIDEMIA, UNSPECIFIED Status: Acute (6) HTN (hypertension) Code(s): I10 - ESSENTIAL (PRIMARY) HYPERTENSION Status: Acute - Plan Plan: 80 y/o F with a PMH notable for anxiety, HTN, depression, CAD, Hx TIAs & Hx of ICH x2 presenting as a transfer from ER in [facility] after presenting there for AMS and N/V & was subsequently found to have a R frontal lobe ICH. Acute and subacute Left frontal ICH -NS consulted from the ED & did not recommend surgical intervention at this time. Recommended the patient be admitted to medical service in the CCU on a cardene gtt to maintain SBPs <140. Also recommended Q1HR neurochecks. Pt has been converted to IV BP medications and off the Cardene ggt as of 10/19. BP control loosened to sys <[address] Fitzgerald, on 10/20 and admitted to stroke floor with new parameters. Conversations with adult child Karen, on 10/21, all of pt's children in agreement for hospice care transfer. Placed CM consult for hospice and pt would be most appropriate for hospice care at a terminal make up operator care facility, as likely not imminent but <6 mo anticipated survival. Pt cleared by speech for diet with risk of aspiration and family agrees with this plan of feeding knowing the risks per conversation with Karen on 10/21. - MRI: Large L-frontal intra-cucial hematoma with acute and subacute hemorrhage with vasogenic edema and significant mass effect with subfalcine herniation. See radiology report for full details. - palliative care consulted. - GCS 7 on 10/19. GCS 8 10/20. GCS on 10/21, 9. UTI -WBC elevated at 13 on presentation & UA was notable for 11-20 RBCs & 2+ bacteria @ outside ED. - started daily rocephin IV, and ordered urine ccx negative. X3 days rocephin and with d/c therapy. Normocytic anemia - Hgb 11.0 on presentation. - likely anemia of chronic disease Suspected CKDIII vs HUY -Per chart review renal function on presentation appears to be within patients baseline range with a Cr of 1.12 & an eGFR of 47. Will continue to monitor renal function closely and renally dose meds PRN. - Cr improved to 0.82, likely HUY with this improvement. HTN- placed clonidine patch. will restart lisinopril, but at 10 mg. and coreg home dose. Anxiety/depression Hx TIA x2 Hx ICH x2 PVD s/p R carotid endarterectomy hypothyroidism -Will resume home meds for all chronic conditions noted above once safe to swallow Dispo: stable, inpt >48 hr hx stay Addendum - Attending - Attending Attestation Date/Time: 10/21/20 4175 I personally evaluated the patient and discussed the management with Dr. Tariq. I agree with the History, Examination, Assessment and Plan documented above with any addition or exceptions noted below.
[2020-10-21] MEDS ORDERED: cloNIDine 0.2mg/24 Hour PATCH TD SCH (16:00)
[2020-10-21] MEDS ORDERED: Carvedilol 3.125 MG TAB PO SCH (17:00)
[2020-10-21] MEDS: Lisinopril 20 MG TAB PO SCH ×2 (19:46→19:49)
[2020-10-21] MEDS ORDERED: Lisinopril 10 MG TAB PO SCH (21:00)
[2020-10-21] MEDS ORDERED: Atorvastatin Calcium 10 MG TAB PO SCH (21:00)
[2020-10-21] MEDS ORDERED: Donepezil HCl 5 MG TAB PO SCH (21:00)
[2020-10-22] MEDS: Lactated Ringer's 1,000 ML IV SCH ×2 (02:08→09:18)
[2020-10-22] MEDS: Labetalol HCl 100 MG/20 ML VIAL SLOW IVP PRN (04:30)
[2020-10-22 05:47] VITALS: BMI 28.0
[2020-10-22] MEDS ORDERED: Levothyroxine Sodium 100 MCG TAB PO SCH (06:00)
[2020-10-22] MEDS: hydrALAZINE 20 MG/ML VIAL SLOW IVP PRN (06:27)
--- NOTE | 2020-10-22 06:54 | PDOC.FM ---
- Subjective Subjective: BP above goal overnight 190's and given IV labetalol. Minimal improvement in BP's. P omeds and clonidine patch started yesterday. will increase PO meds and add third agent of amlodipine. approved for [facility]. - Objective Vital Signs & Weight: Vital Signs (12 hours) Temp Pulse Resp BP Pulse Ox 10/22/20 06:27 76 10/22/20 06:24 197/88 H 10/22/20 05:42 176/81 H 10/22/20 04:20 98.1 F 76 16 210/91 H 96 10/22/20 00:38 98.6 F 83 16 155/86 H 95 10/21/20 21:49 80 10/21/20 19:25 98.6 F 80 20 176/79 H 93 L Weight Weight 81.238 kg Most Recent Monitor Data Heart Rate from ECG 79 NIBP 143/74 NIBP BP-Mean 97 Respiration from ECG 18 SpO2 93 I&O: 10/20/20 10/21/20 10/22/20 06:59 06:59 06:59 Intake Total 3233 1942.5 1440 Output Total 1135 1950 600 Balance 2098 -7.5 840 Result Diagrams: 10/19/20 06:33 10/19/20 06:33 Phys Exam - Physical Examination Pt awake and can mumble today. HEENT: moist MMs, sclera anicteric Neck: no JVD, supple Respiratory: no wheezing, no rales, no rhonchi, clear to auscultation bilateral Cardiovascular: RRR, no significant murmur Gastrointestinal: soft, no distention, positive bowel sounds Musculoskeletal: no edema, pulses present mumbles and nods head as commanded Skin: cap refill <2 seconds Dx/Plan (1) UTI (urinary tract infection) Status: Acute (2) Dementia Code(s): F03.90 - UNSPECIFIED DEMENTIA WITHOUT BEHAVIORAL DISTURBANCE Status: Acute (3) Palliative care encounter Code(s): Z51.5 - ENCOUNTER FOR PALLIATIVE CARE Status: Acute (4) Acute spontaneous intraparenchymal intracranial hemorrhage Code(s): I62.9 - NONTRAUMATIC INTRACRANIAL HEMORRHAGE, UNSPECIFIED Status: A cute (5) HLD (hyperlipidemia) Code(s): E78.5 - HYPERLIPIDEMIA, UNSPECIFIED Status: Acute (6) HTN (hypertension) Code(s): I10 - ESSENTIAL (PRIMARY) HYPERTENSION Status: Acute - Plan Plan: 80 y/o F with a PMH notable for anxiety, HTN, depression, CAD, Hx TIAs & Hx of ICH x2 presenting as a transfer from ER in [facility] after presenting there for AMS and N/V & was subsequently found to have a R frontal lobe ICH. Acute and subacute Left frontal ICH -NS consulted from the ED & did not recommend surgical intervention at this time. Recommended the patient be admitted to medical service in the CCU on a cardene gtt to maintain SBPs <140. Also recommended Q1HR neurochecks. Pt has been converted to IV BP medications and off the Cardene ggt as of 10/19. BP control loosened to sys <[address] Fitzgerald, on 10/20 and admitted to stroke floor with new parameters. Conversations with adult child Ariana, on 10/21, all of pt's children in agreement for hospice care transfer. Placed CM consult for hospice and pt would be most appropriate for hospice care at a [facility] facility, as likely not imminent but <6 mo anticipated survival. Pt cleared by speech for diet with risk of aspiration and family agrees with this plan of feeding knowing the risks per conversation with Ariana on 10/21. Afternoon of 10/21, due to funding, family elected SNF care with PT/OT and will add on Hospice at a later date. Accepted to [facility]. Will d/c once BP consistently treated. - MRI: Large L-frontal intra-cucial hematoma with acute and subacute hemorrhage with vasogenic edema and significant mass effect with subfalcine herniation. See radiology report for full details. - palliative care consulted. - GCS 7 on 10/19. GCS 8 10/20. GCS on 10/21, 9. GCS on 10/22, 9. UTI -WBC elevated at 13 on presentation & UA was notable for 11-20 RBCs & 2+ bact eria @ outside ED. - started daily rocephin IV, and ordered urine ccx negative. X3 days rocephin th erapy. Normocytic anemia - Hgb 11.0 on presentation. - likely anemia of chronic disease Suspected CKDIII vs HUY -Per chart review renal function on presentation appears to be within patients baseline range with a Cr of 1.12 & an eGFR of 47. Will continue to monitor renal function closely and renally dose meds PRN. - Cr improved to 0.82, likely HUY with this improvement. HTN- placed clonidine patch o.2 mg on 10/21. BP remains elevated with addition of lisinopril and coreg. increased lisinopril to 40 mg daily/coreg 6.25 BID, and added amlodipine 5 mg daily. Anxiety/depression Hx TIA x2 Hx ICH x2 PVD s/p R carotid endarterectomy hypothyroidism -resumed home meds with speech recs of diet with risks Dispo: stable, inpt >48 hr hx stay planning d/c to legacy when BP more stable for SNF care and PT/OT Addendum - Attending - Attending Attestation Date/Time: 10/23/20 8574 I personally evaluated the patient and discussed the management with Dr. Tariq yesterday. I agree with the History, Examination, Assessment and Plan documented above with any addition or exceptions noted below.
[2020-10-22] MEDS ORDERED: Carvedilol 6.25 MG TAB PO SCH (08:00)
[2020-10-22] MEDS ORDERED: Lisinopril 20 MG TAB PO SCH ×2 (09:00)
[2020-10-22] MEDS ORDERED: Citalopram 20 MG TAB PO SCH (09:00)
[2020-10-22] MEDS ORDERED: Amlodipine 5 MG TAB PO SCH (09:00)
[2020-10-22] MEDS: cefTRIAXone\\ROCEPHIN 1 GM in Sodium Chloride 0.9% 100 ML IVPB SCH (09:14)
[2020-10-22] MEDS: Ezetimibe 10 MG TAB PO SCH (09:14)
[2020-10-22] MEDS: Pantoprazole 40 MG VIAL IVP SCH (09:15)
[2020-10-22 12:04] VITALS: BP 135/62; TEMP 97.7
--- NOTE | 2020-10-26 10:05 | DIS ---
DATE OF ADMISSION: 10/18/2020 DATE OF DISCHARGE: 10/22/2020 RESIDENT: Christiana Tariq DO ADMITTING ATTENDING: Dr. Randall. DISCHARGE ATTENDING: Dr. Hamilton. CONSULTS: 1. Dr. Fitzgerald with Neurosurgery. 2. Case Management. 3. Physical Therapy and Occupational Therapy. 4. Speech eval/treat. 5. Intracerebral hemorrhage score consult, post acute screen consult. PROCEDURES: CT scan without contrast performed at [facility], where she was found to have an acute intracerebral hemorrhage. On 10/18, brain MRI, which showed a large left frontal lobe intra-axial hematoma with acute and subacute components of hemorrhage causing vasogenic edema and significant mass effect with subfalcine herniation. Not significant change from the CT that was performed earlier that morning. On 10/18, brain MRA, which showed no evidence of avascular malformation at the [place], a limited evaluation of vessel vasculature in the level of the left frontal hematoma. DIAGNOSES: 1. Acute and subacute left frontal intracerebral hemorrhage. 2. Urinary tract infection. 3. Normocytic anemia. 4. Suspected CKD with HUY. 5. Hypertension. 6. Anxiety/depression. 7. History of two TIAs. 8. History of two intracerebral hemorrhages in the past. 9. Peripheral vascular disease with history of carotid stenosis, status post right carotid endarterectomy. 10. Hypothyroidism. DISCHARGE MEDICATIONS: 1. Clonidine patch 0.2 mg transdermal every 7 days. 2. Coreg 6.25 mg p.o. b.i.d. 3. Norvasc 5 mg p.o. daily. 4. Lisinopril 40 mg p.o. daily. 5. Tylenol 650 mg suppository or p.o. q.4 hours p.r.n. as needed for pain. 6. Celexa 20 mg p.o. daily. 7. Aricept 5 mg p.o. at bedtime. 8. Zetia 10 mg p.o. daily. 9. Synthroid 100 mcg p.o. q.a.m. before breakfast. 10. Alprazolam 0.125 mg p.o. t.i.d. p.r.n. 11. Lipitor 10 mg p.o. at bedtime. 12. Fexofenadine 60 mg daily p.r.n. for allergies. 13. Pravastatin 40 mg p.o. at bedtime. 14. Trazodone 100 mg p.o. q.p.m. DISCONTINUED MEDICATIONS: 1. Lisinopril 2.5 mg p.o. b.i.d. 2. Coreg 3.125 mg p.o. b.i.d. HISTORY OF PRESENT ILLNESS/HOSPITAL COURSE: Ms. Fay is an 80-year-old female, who has dementia and history of 2 intracerebral hemorrhages, that has had a stepwise decline from her CVAs. She started to develop nausea and vomiting the night of the and was taken to [place] ER, where CT without contrast showed acute left frontal hemorrhage. The patient was transferred to [facility] and Neurosurgery, Dr. Fitzgerald was consulted, who deemed this nonoperative after reading the scans, also ordered a brain MRI and MRV, which showed left frontal large hematoma with subfalcine herniation as well as cerebral edema. It was his recommendation that she receive physical therapy, occupational therapy, and speech therapy for recommendations and then to expect a slow process to recovery and will likely need a SNF facility. With multiple conversations with the patient's family, this is what we have decided for and the patient will be transferred to [facility] later today. At first, the patient's blood pressure goal was to be less than 140 and was placed on a Cardene drip to maintain this blood pressure. She was on hold in the ER for 2 days and after this, Dr. Fitzgerald loosened the blood pressure control to less than 170. She is at this time still unable to swallow safely per speech recommendations, so she was maintained less than 170 on IV p.r.n. medications of labetalol and hydralazine. However, her blood pressure remained elevated and the next day she was started on a clonidine patch. Once able to swallow safely, p.o. medications were started on 10/21. These were titrated up to meet the goal of less than 170, and on day of discharge, her blood pressure has been consistently 150s over 60s to 70s in the morning. It is my recommendation that if she continues to have higher blood pressure to look at titrating the amlodipine up to 10 mg and also the Coreg up to max therapy. If she does however become lower, these are also appropriate to titrate down. Hospice care was discussed with the family, who does believe that the patient would agree and not want to have any further life-saving therapy if needed. However, when discussing this with Case Management with the family, they opted for SNF care with physical therapy and speech therapy at this time because of a funding issue being needing 30/04 SNF facility. They will approach the hospice at a later date as they still think that is what the patient would want as she was not wanting to continue further therapy. DISPOSITION: The patient is stable with improved blood pressures. DISCHARGE INSTRUCTIONS: 1. Location: [facility]. 2. Diet: Regular diet with risk of aspiration as discussed with the family. The eldest child of Ms. Fay is the medical decision maker. 3. Activity per PT, OT recommendations, and follow up with primary care physician at the group home later today or tomorrow. Job ID: [id number]
[2020-10-28] MEDS ORDERED: cloNIDine 0.2mg/24 Hour PATCH TD SCH (09:00)
== END 2020-10-22 16:21 | DRG 64 ==
LOC: ERS 04:07 → ERHOLD 04:40 → 3SE 10-20 11:42
PROVIDERS: ADMIT Family Medicine; ATTEND Family Medicine
DX: I62.9 Nontraumatic intracranial hemorrhage, unspecified (principal); G93.6 Cerebral edema; J90 Pleural effusion, not elsewhere classified; N39.0 Urinary tract infection, site not specified; E78.00 Pure hypercholesterolemia, unspecified; Z20.822 Contact with and (suspected) exposure to COVID-19; I48.91 Unspecified atrial fibrillation; Z66 Do not resuscitate; Z51.5 Encounter for palliative care; I25.10 Atherosclerotic heart disease of native coronary artery without angina pectoris; N18.9 Chronic kidney disease, unspecified; I12.9 Hypertensive chronic kidney disease with stage 1 through stage 4 chronic kidney disease, or unspecified chronic kidney disease; E78.5 Hyperlipidemia, unspecified; R47.01 Aphasia; F03.90 Unspecified dementia, unspecified severity, without behavioral disturbance, psychotic disturbance, mood disturbance, and anxiety; F41.9 Anxiety disorder, unspecified; F32.9 Major depressive disorder, single episode, unspecified; D64.9 Anemia, unspecified; E03.9 Hypothyroidism, unspecified; Z90.710 Acquired absence of both cervix and uterus; Z79.899 Other long term (current) drug therapy; Z79.890 Hormone replacement therapy; Z88.8 Allergy status to other drugs, medicaments and biological substances; Z79.82 Long term (current) use of aspirin; Z86.73 Personal history of transient ischemic attack (TIA), and cerebral infarction without residual deficits
CPT/HCPCS: 36415; 51701; 70450; 70544; 70553; 71045; 74176; 80048; 80053; 81003; 81015; 82550; 83605; 83690; 84484; 85025; 85610; 85730; 87086; 93005; 96365; 96366; 96375; 99292; A9579; C9113; J0360; J0461; J0696; J2405; J3490; J7050; U0002

== ENCOUNTER 2020-11-05 17:25 | Inpatient (IN) | payer MEDICARE ==
[2020-11-05 18:40] LABS: Hemoglobin 11.4 g/dL (12.0-16.0); Mean Corpuscular HGB CONC 31.3 g/dL (32.0-36.0); Mean Corpuscular Hemoglobin 28.3 pg (27.0-31.0); Mean Corpuscular Volume 90.2 fL (78.0-98.0); Mean Platelet Volume 10.3 fL (7.4-10.4); Platelet Count 142 thou/uL (130-400); RBC Distribution Width 13.1 % (11.5-14.5); Red Blood Cell (RBC) Count 4.04 mill/uL (4.20-5.40); White Blood Cell (WBC) Count 26.3 thou/uL (4.8-10.8)
--- NOTE | 2020-11-05 19:06 | RAD ---
EXAM: CHEST ONE VIEW: 11/05/20 HISTORY: Diffuse abdominal pain. COMPARISON: 10/18/20. FINDINGS: Heart size is normal. Minimal stable blunting of the left costophrenic angle. Left healed rib fractur es. Minimal fibrolinear and fibronodular parenchymal changes in the right upper lobe with some associ ated volume loss, stable. IMPRESSION: Evidence for stable chronic changes including the right upper lobe with minimal volume loss and the l eft costophrenic angle region. No significant new process. No evidence for pneumonia. No free intrape ritoneal air. POS: RRE
[2020-11-05 19:07] LABS: ALT (SGPT) 64 U/L (8-55); AST (SGOT) 40 U/L (5-34); Albumin 2.6 g/dL (3.4-4.8); Alkaline Phosphatase 139 U/L (40-110); Anion Gap 23 mmol/L (10-20); Band 52 % (5-11); Bilirubin, Total 0.5 mg/dL (0.2-1.2); Calc. Creatinine Clearance 0 mL/min (70-130); Calcium 8.5 mg/dL (7.8-10.44); Carbon Dioxide 19 mmol/L (23-31); Chloride 118 mmol/L (98-107); Globulin 3.8 g/dL (2.4-3.5); Glucose 124 mg/dL (83-110); Lipase 30 U/L (8-78); Lymphocytes 2 % (21-51); MDiff Complete? YES; Monocytes 1 % (0-10); Neutrophil 44 % (42-75); Platelet Morphology Comment Appears Adequate; Polychromasia SLIGHT = 2-3 cells (100X) (0-2/hpf); Protein, Total 6.4 g/dL (5.8-8.1); Reactive Lymphocytes 1 % (0-10); Schistocytes SLIGHT = 2-5 cells (100X) (0-1/hpf); Sodium 156 mmol/L (136-145); Target Cells SLIGHT = 2-5 cells (100X) (0-1/hpf)
[2020-11-05] MEDS ORDERED: Morphine 4 MG/ML VIAL ONE (19:10)
[2020-11-05 19:20] LABS: BUN (Urea Nitrogen) 141 mg/dL (9.8-20.1)
[2020-11-05 19:25] LABS: CKMB 2.9 ng/mL (0-6.6)
--- NOTE | 2020-11-05 20:23 | CT ---
CT Abdomen Pelvis WO Con: 11/05/2020 8:00 PM HISTORY: Diffuse abdominal pain COMPARISON: 10/18/2020 TECHNIQUE: Multiple contiguous axial images were obtained and a CT of the abdomen and pelvis without IV contrast . Coronal and sagittal reformats were performed. FINDINGS: This examination is limited for the evaluation of solid organs and vascular structures due to the lac k of intravenous contrast. Lower Chest: Trace left pleural effusion with adjacent atelectasis. Abdomen: Liver: within normal limits. Bile Ducts: Normal caliber. Gallbladder: No calcified gallstones. Normal caliber wall. Pancreas: within normal limits. Spleen: Small calcified granuloma. Adrenals: within normal limits. Kidneys: within normal limits. Pelvis: Reproductive Organs: Status post hysterectomy. Ureters: within normal limits. Bladder: Decompressed by a catheter. Bowel: Normal caliber. Scattered diverticula are seen in the colon. There is apparent stranding enamorado e adjacent to the sigmoid colon consistent with acute diverticulitis. Mesenteric Lymph Nodes: No enlarged mesenteric lymph nodes. Peritoneum: No ascites or free air, no fluid collection. Vessels: Atherosclerotic calcifications in the aorta Retroperitoneum: within normal limits. Abdominal Wall: within normal limits. Bones: Degenerative changes in the spine. IMPRESSION: Acute diverticulitis
[2020-11-05] MEDS ORDERED: Piperacillin/Tazobactam 4.5 GM VIAL ONE (20:46)
--- NOTE | 2020-11-05 22:23 | PDOC.FPRHP ---
- History of Present Illness Chief Complaint: Abdominal Pain History of Present Illness: 80-year-old female presents the ER with chief complaint of abdominal pain and diarrhea for the past day. Pt is unable to provide meaningful HPI due to dementia. Daughter at bedside states that pt was having diarrhea and abdominal w hich started yesterday. Daughter went to see pt today at [place] and requested pain control, however the tramadol that was given do not control patient's pain very well. She was also given one dose of rocephin. Pt continued to be in pain so daughter sent patient to be evaluated in ER. Pt states that yesterday family had decided that they did not want patient to continue on her home medications and now have decided that they just want to keep patient comfortable with no interventions. ED Course: Zosyn 4.5g Morphine NS - Allergies/Adverse Reactions Allergies Allergy/AdvReac Type Severity Reaction Status Date / Time gabapentin AdvReac Hallucinati Verified 11/06/20 01:38 ons [id number]-Ncx-Mru Reductase AdvReac Verified 11/06/20 01:38 Inhibitor - Home Medications Medication Instructions Recorded Confirmed Type ALPRAZolam [Xanax] 0.125 mg PO BID 11/06/20 11/06/20 History Acetaminophen [Acetaminophen Extra 500 mg PO Q6HR PRN 11/06/20 11/06/20 History Strength] Morphine Sulfate 5 mg PO Q4HR PRN 11/06/20 11/06/20 History traMADol HCl [Tramadol HCl] 50 mg PO QID PRN 11/06/20 11/06/20 History - History PMHx: Recent ICH, Hx of CVAx2, Hx of TIA x2, HTN, HLD, CAD, CKD3, Hypothyroidism, Dementia PSHx: hysterectomy, R carotid endarterectomy FHx: noncontributory Social: Lives in [facility]. Remote hx of tobacco use. - Review of Systems ROS unobtainable: due to mental status - Vital signs BP: 110/62 (Manual BP), Pulse: 60, Resp: 17, Temp: 98.4 (Oral), Pain: UTR, O2 sat: 97 on (Room Air), Time: 11/05/2020 21:46. - Physical Exam Constitutional: other (occasionally grimacing in pain) HEENT: normocephalic and atraumatic Neck: supple Heart: RRR, normal S1/S2, no murmurs/rubs/gallops Lungs: CTAB, no respiratory distress, good air movement Abdomen: bowel sounds present, no masses/distention, no hernias, other (TTP diffusely, cassi over LLQ) Skin: no rash/lesions, no jaundice Psychiatric: other (somnolent, occasionally writhing in pain) FMR H&P: Results - Labs Result Diagrams: 11/06/20 07:32 11/06/20 07:32 Lab results: WBC 26.3 thou/uL (4.8-10.8) H 11/05/20 17:29 Hgb 11.4 g/dL (12.0-16.0) L 11/05/20 17: Hct 36.5 % (36.0-47.0) 11/05/20 17: MCV 90.2 fL (78.0-98.0) 11/05/20 17:29 Plt Count 142 thou/uL (130-400) 11/05/20 17:29 Band Neuts % (Manual) 52 % (5-11) H 11/05/20 17:29 Sodium 156 mmol/L (136-145) H 11/05/20 17:29 Potassium 4.0 mmol/L (3.5-5.1) 11/05/20 17: Chloride 118 mmol/L (98-107) H 11/05/20 17:29 Carbon Dioxide 19 mmol/L (23-31) L 11/05/20 17:29 BUN 141 mg/dL (9.8-20.1) H 11/05/20 17:29 Creatinine 5.82 mg/dL (0.6-1.1) H 11/05/20 17:29 Glucose 124 mg/dL (83-110) H 11/05/20 17:29 Lactic Acid 1.8 mmol/L (0.5-2.2) 11/05/20 19:30 Calcium 8.5 mg/dL (7.8-10.44) 11/05/20 17:29 Total Bilirubin 0.5 mg/dL (0.2-1.2) 11/05/20 17: AST 40 U/L (5-34) H 11/05/20 17:29 ALT 64 U/L (8-55) H 11/05/20 17:29 Alkaline Phosphatase 139 U/L (40-110) H 11/05/20 17:29 CK-MB (CK-2) 2.9 ng/mL (0-6.6) 11/05/20 17:29 Serum Total Protein 6.4 g/dL (5.8-8.1) 11/05/20 17:29 Albumin 2.6 g/dL (3.4-4.8) L 11/05/20 17:29 Lipase 30 U/L (8-78) 11/05/20 17:29 - Radiology Interpretation Chest x-ray Status: report reviewed by me (no acute cardiopulmonary process) CT scan - abdomen Status: report reviewed by me (acute diverticulitis) FMR H&P: A/P - Plan ##Acute Diverticulitis -Seen on CT imaging -WBC 26.3, LA 1.8 -s/p zosyn in ED, morphine -continue with abx and pain control ##Acute Renal Failure with Uremia -pt has hx of CKD -BUN 141, Track Man 5.82 -Nephro consulted from ED for emergent dialysis, however, family does not want this for patient d/t her wishes ##Elevated Troponin -trop 0.105, admitted to telemetry -will not trend trop -intervention will not be pursued if trop increases ##Hypernatremia -Na 156 -careful with fluid hydration Chronic Conditions: ##Dementia ##Recent ICH and CVAs ##CKD ##HTN ##Anxiety/Depression ##PVD ##Hypothyroidism -Decision was made yesterday by family as NH to not continue any home medications Discussed with daughter at bedside about goals of care and states that her and rest of siblings have taken in consideration patient's wishes and do not desire intervention for patient and would like comfort measures at this time. Palliative care consult placed to discuss hospice in the AM. CODE: DNAR VTE: None Dispo: admitted to telemetry, control pain, continue with abx. FMR H&P: Upper Level - Plan Date/Time: 11/05/20 2953 I, [Eriberto Flor [email or web address]], have evaluated this patient and agree with findings/plan as outlined by internal medicine veterinary technician resident. Pertinent changes/additions are listed here. 80-year-old female with past medical history of dementia and several intracranial CVA presents for abdominal pain from the custodial. She was hospitalized earlier this month for intracranial hemorrhage and was discharged to custodial after deemed inoperable. There were conversations with family about transitioning to hospice care and plans to do that eventually once she was out of the hospital. Patient is unable to give history secondary to baseline dementia. Her daughter states that they would like to treat her palliatively tonight and transition to hospice. They do not want dialysis or other invasive measures to save her life. On exam patient is in mild to moderate distress secondary to pain, she does not respond to questions. Cardiopulmonary exam normal. Abdomen diffusely tender to palpation. Assessment and plan Acute renal failure Etiology unknown, patient would be candidate for dialysis. Nephrology was called from emergency room. Family states that the patient would not want dialysis and they would like to pursue palliative measures. Palliative care consult placed. Diverticulitis As seen on CT scan, patient is status post 1 dose of Zosyn. We will continue Zosyn for palliative means renally dosed. Transaminitis Likely congestive hepatopathy, considering palliative goals of care will not work-up Indeterminate troponin Likely secondary to acute renal failure, will hold work-up considering palliative goals of care All other chronic problems per internal medicine veterinary technician note. Code: DNAR Disposition: Inpatient, expect more than 2 midnights. Overall prognosis is very poor, will be moving towards hospice consult in the morning Addendum - Attending - Attending Attestation Date/Time: 11/06/20 1730 I personally evaluated the patient and discussed the management with Dr. Dave/Chacho. I agree with the History, Examination, Assessment and Plan documented above with any addition or exceptions noted below. Please see progress note 11/06/20 for full attestation for 11/06/20.
[2020-11-05] MEDS ORDERED: Acetaminophen 650 MG Suppository PR PRN (22:50)
[2020-11-05] MEDS ORDERED: Acetaminophen 325 MG TAB PO PRN (22:50)
[2020-11-05] MEDS ORDERED: Sodium Bicarbonate 100 MEQ in Dextrose 5% in Water 1,000 ML IV SCH (23:00)
[2020-11-05] MEDS ORDERED: Ondansetron ODT 4 MG TAB SL PRN (23:15)
[2020-11-05] MEDS ORDERED: Ondansetron PF 4 MG/2 ML Vial IVP PRN (23:15)
[2020-11-05] MEDS ORDERED: Lorazepam 2 MG/ML VIAL SLOW IVP PRN (23:32)
[2020-11-05] MEDS ORDERED: Fentanyl 100 MCG/2 ML VIAL SLOW IVP PRN (23:33)
[2020-11-06] MEDS: Lorazepam 2 MG/ML VIAL SLOW IVP PRN ×2 (00:13→19:57)
[2020-11-06 01:59] VITALS: BMI 24.5
[2020-11-06 02:19] LABS: Bacteria/HPF None Seen HPF (None Seen); Bilirubin Negative (Negative); Blood, Urine 2+ (Negative); Calcium Oxalate Crystals 4+ HPF (None Seen); Clarity Extra Turbid (Clear); Glucose, Urine (Dipstick) Normal (Negative); Ketone, Urine Negative (Negative); Leukocyte 500 Leu/uL (Negative); Nitrite Negative (Negative); Protein, Urine (Dipstick) 200 mg/dL (Neg-Trace); RBC/HPF Greater than 50 HPF (0-3); Specific Gravity, Urine 1.022 (1.002-1.036); Squamous Epithelial 0-3 HPF (0-3); Urobilinogen Normal mg/dL (Less than 2); WBC/HPF Greater than 50 HPF (0-3); Yeast-Budding 2+ HPF (None Seen); pH, Urine 5.5 (5.0-9.0)
[2020-11-06 02:36] LABS: Creatinine, Urine 125.38 mg/dL (47-110); Urine Culture Reflex Yes Yes
[2020-11-06] MEDS ORDERED: Piperacillin/Tazobactam 4.5 GM in Sodium Chloride 0.9% 100 ML IVPB SCH (04:30)
[2020-11-06] MEDS: Piperacillin/Tazobactam 2.25 GM in Sodium Chloride 0.9% 100 ML IVPB SCH ×3 (05:16→17:31)
--- NOTE | 2020-11-06 05:49 | PDOC.FM ---
- Subjective Subjective: Mrs. Fay was sleeping comfortably this morning and I did not wake her. - Objective Vital Signs & Weight: Vital Signs (12 hours) Temp Pulse Resp BP Pulse Ox 11/05/20 23:10 97.9 F 61 16 106/51 L 94 L Weight Weight 75.342 kg Result Diagrams: 11/05/20 17:29 11/06/20 07:32 Phys Exam - Physical Examination Constitutional: NAD No resp distress Dx/Plan - Plan Plan: This is an 80F who presented to the ED from [facility] for abdominal pain and diarrhea x1 day, found to have acute diverticulitis. Acute Diverticulitis -Seen on CT imaging on arrival -CBC pending this am to monitor WBCs -continue with abx and pain control: Zosyn and fentanyl -comfort measures only with pending transition to hospice Acute Renal Failure with Uremia -pt has hx of CKD -BUN 130, Safety Physician 5.89. Recent baseline unknown, was 1 in 2019. -comfort measures only, as above Elevated Troponin -trop 0.105, admitted to telemetry -will not trend trop and intervention will not be pursued. Comfort measures, as above Hypernatremia -Na 153 -gentle IVF Chronic Conditions: Dementia Recent ICH and CVAs CKD HTN Anxiety/Depression PVD Hypothyroidism -Decision was made by family to not continue any home medications Dispo: Admitted to tele. Goals of care were discussed with daughter at bedside on arrival and she stated the family does not desire any intervention and are pursuing hospice at this time. Palliative care consult placed to help with this transition today. Hospice order placed. Continue pain control and abx treated for sx management. IVF: SL Diet: HH-LS GI ppx: None DVT Ppx: None CODE: DNAR Addendum - Attending - Attending Attestation Date/Time: 11/06/20 7850 I personally evaluated the patient and discussed the management with Dr. David Pedro. I agree with the History, Examination, Assessment and Plan documented above with any addition or exceptions noted below. Patient resting comfortably. Family has confirmed DNAR status and would like to pursue comfort measures in this patient. We are withholding further aggressive medical therapy, and will consult hospice services this morning.
[2020-11-06 08:03] LABS: Anion Gap 23 mmol/L (10-20); Calc. Creatinine Clearance 9 mL/min (70-130); Calcium 7.6 mg/dL (7.8-10.44); Carbon Dioxide 15 mmol/L (23-31); Chloride 119 mmol/L (98-107); Glucose 131 mg/dL (83-110); Potassium 3.5 mmol/L (3.5-5.1); Sodium 153 mmol/L (136-145)
[2020-11-06 08:16] LABS: BUN (Urea Nitrogen) 130 mg/dL (9.8-20.1)
--- NOTE | 2020-11-06 10:10 | PDOC.NEPPN ---
- Subjective Encounter Date: 11/06/20 Subjective: Seen. No new problem. Resting/sleeping comfortably. - Objective Vital Signs & Weight: Vital Signs (12 hours) Temp Pulse Resp BP Pulse Ox 11/06/20 08:41 98.3 F 61 20 99/48 L 96 11/06/20 04:35 96.9 F L 63 16 102/45 L 95 11/06/20 00:10 92/45 L 11/05/20 23:10 97.9 F 61 16 106/51 L 94 L Weight Weight 166 lb 1.6 oz Result Diagrams: 11/05/20 17:29 11/06/20 07:32 Nephrology ROS - Medication Medications: Active Medications Generic Name Dose Route Start Last Admin Trade Name Freq PRN Reason Stop Dose Admin Piperacillin Sod/Tazobactam 100 mls @ 200 mls/hr 11/06/20 05:00 11/06/20 05:16 Sod 2.25 gm/ Sodium Chloride IVPB 100 mls 0500,1100,1700,2300 PEDRO Administration Lorazepam 1 mg 11/05/20 23:50 11/06/20 00:13 Lorazepam 2 Mg/Ml Vial SLOW IVP 1 mg Q1H PRN Administration Anxiety/Agitation - Exam General - other findings: sleeping comfortably. Aferile ENT: normocephalic atraumatic Neck: symmetric Respiratory: no wheezes, no ronchi Respiratory - other findings: fair air entry bilaterally Cardiovascular: RRR Gastrointestinal: non-distended, tender to palpation Extremities - other findings: trace leg edema Neurological - other findings: sleeping. Nephrology Results - Labs Result Diagrams: 11/05/20 17:29 11/06/20 07:32 Lab results: WBC 26.3 thou/uL (4.8-10.8) H 11/05/20 17:29 Hgb 11.4 g/dL (12.0-16.0) L 11/05/20 17:29 Hct 36.5 % (36.0-47.0) 11/05/20 17:29 MCV 90.2 fL (78.0-98.0) 11/05/20 17:29 Plt Count 142 thou/uL (130-400) 11/05/20 17:29 Band Neuts % (Manual) 52 % (5-11) H 11/05/20 17:29 Sodium 153 mmol/L (136-145) H 11/06/20 07:32 Potassium 3.5 mmol/L (3.5-5.1) 11/06/20 07:32 Chloride 119 mmol/L (98-107) H 11/06/20 07:32 Carbon Dioxide 15 mmol/L (23-31) L 11/06/20 07:32 BUN 130 mg/dL (9.8-20.1) H 11/06/20 07:32 Creatinine 5.89 mg/dL (0.6-1.1) H 11/06/20 07:32 Glucose 131 mg/dL (83-110) H 11/06/20 07:32 Lactic Acid 1.8 mmol/L (0.5-2.2) 11/05/20 19:30 Calcium 7.6 mg/dL (7.8-10.44) L 11/06/20 07:32 Total Bilirubin 0.5 mg/dL (0.2-1.2) 11/05/20 17:29 AST 40 U/L (5-34) H 11/05/20 17:29 ALT 64 U/L (8-55) H 11/05/20 17:29 Alkaline Phosphatase 139 U/L (40-110) H 11/05/20 17:29 CK-MB (CK-2) 2.9 ng/mL (0-6.6) 11/05/20 17:29 Troponin I 0.105 ng/mL (< 0.028) H 11/05/20 17:29 Serum Total Protein 6.4 g/dL (5.8-8.1) 11/05/20 17:29 Albumin 2.6 g/dL (3.4-4.8) L 11/05/20 17:29 Lipase 30 U/L (8-78) 11/05/20 17:29 Urine Ketones Negative mg/dL (Negative) 11/06/20 00:50 Urine Blood 2+ (Negative) A 11/06/20 00:50 Urine Nitrite Negative (Negative) 11/06/20 00:50 Ur Leukocyte Esterase 500 Brennen/uL (Negative) A 11/06/20 00:50 Urine RBC Greater than 50 HPF (0-3) A 11/06/20 00:50 Urine WBC Greater than 50 HPF (0-3) A 11/06/20 00:50 Ur Squamous Epith Cells 0-3 HPF (0-3) 11/06/20 00:50 Urine Bacteria None Seen HPF (None Seen) 11/06/20 00:50 Sodium 153 mmol/L (136-145) H 11/06/20 07:32 Potassium 3.5 mmol/L (3.5-5.1) 11/06/20 07:32 Chloride 119 mmol/L (98-107) H 11/06/20 07:32 Carbon Dioxide 15 mmol/L (23-31) L 11/06/20 07:32 Anion Gap 23 mmol/L (10-20) H 11/06/20 07:32 BUN 130 mg/dL (9.8-20.1) H 11/06/20 07:32 Creatinine 5.89 mg/dL (0.6-1.1) H 11/06/20 07:32 Glucose 131 mg/dL (83-110) H 11/06/20 07:32 Calcium 7.6 mg/dL (7.8-10.44) L 11/06/20 07:32 Albumin 2.6 g/dL (3.4-4.8) L 11/05/20 17:29 Nephrology AP PN - Plan Acute renl failure Metabolic acidosis Presumed Uremic encephalopathy Acute encephalopathy: Due to sepsis and uremia Hypernatremia Sepsis Acute diverticulitis. Plan Agree wt comfort care. Will be best served by Hospice care given her premorbid advanced dementia and recent CVA Continue sodium bcarb for now tilll family discuss with hospice team. Nehrology will sign off. Call for any question of clarification.
[2020-11-06 10:41] LABS: Band 29 % (5-11); Eosinophils 1 % (0-10); Hemoglobin 8.7 g/dL (12.0-16.0); Lymphocytes 9 % (21-51); MDiff Complete? YES; Mean Corpuscular HGB CONC 31.8 g/dL (32.0-36.0); Mean Corpuscular Hemoglobin 28.6 pg (27.0-31.0); Mean Corpuscular Volume 89.8 fL (78.0-98.0); Mean Platelet Volume 9.9 fL (7.4-10.4); Monocytes 1 % (0-10); Neutrophil 60 % (42-75); Platelet Count 95 thou/uL (130-400); Platelet Morphology Comment Appears Decreased; RBC Distribution Width 13.2 % (11.5-14.5); Red Blood Cell (RBC) Count 3.06 mill/uL (4.20-5.40); White Blood Cell (WBC) Count 15.9 thou/uL (4.8-10.8)
--- NOTE | 2020-11-06 10:55 | CON ---
DATE OF CONSULTATION: 11/05/2020 SERVICE: Nephrology. REASON FOR CONSULTATION: Acute renal failure. REQUESTING PHYSICIAN: Hu Polanco MD HISTORY OF PRESENT ILLNESS: Following history was obtained from review of medical record as the patient has dementia and was unable to provide any significant history. The patient was brought in from a [place] [facility] residence by daughter due to worsening abdominal pain as well as diarrhea and generalized ill feeling. The patient reportedly had a recent intracranial hemorrhage and was recently seen in this hospital and discharged. Then, hospice/palliative care recommendation was made. The patient's relative preferred to consider that later. Since discharge, the patient was fairly okay till few days ago when she started having abdominal pain and diarrhea. Treatment with oral analgesic was not helpful, hence was brought in. There was no associated fever or chills. Further evaluation with CT scan of the abdomen and pelvis without contrast showed features of acute diverticulitis. The patient also was evaluated with BMP which showed BUN of 141 and creatinine of 5.82, necessitating Nephrology consult. Of note, on October 19, 2020, creatinine was 0.82; however, BMP done on November 04 showed creatinine of 4.01. The patient received normal saline in the ER and there is a consideration for hemodialysis. At baseline, the patient has dementia and is unable to talk. However, due to the patient's general condition, recent intracranial hemorrhage, and baseline dementia, family/relatives, and I incline to conservative management and they had discussions about hospice. PAST MEDICAL HISTORY: 1. Intracranial hemorrhage. 2. Prior cerebrovascular accident x2. 3. Hypertension. 4. Dementia. 5. Prior TIA. 6. Hyperlipidemia. 7. Coronary artery disease. 8. CKD stage 3. 9. Hypothyroidism. PAST SURGICAL HISTORY: 1. Hysterectomy. 2. Right carotid endarterectomy. FAMILY HISTORY: Noncontributory. Could not be obtained due to the patient's condition. SOCIAL HISTORY: The patient currently lives in [facility]. Had a remote history of tobacco use. ALLERGIES: THE PATIENT IS REPORTED TO HAVE ADVERSE REACTION AND ALLERGY TO THE FOLLOWING MEDICATIONS: 1. GABAPENTIN. 2. STATIN. MEDICATIONS: Prior to hospital medications are as follows: 1. Lisinopril 40 mg p.o. daily. 2. Clonidine patch 0.2 mg every 7 days. 3. Levothyroxine 100 mcg p.o. daily. 4. Carvedilol 6.25 p.o. b.i.d. 5. Lipitor 10 mg p.o. daily at bedtime. 6. Amlodipine 5 mg p.o. daily. 7. Tylenol p.r.n. 8. Trazodone 100 mg p.o. daily at bedtime. 9. Sabrina Allergy 60 mg p.o. daily. 10. Xanax p.o. t.i.d. 11. Donepezil 5 mg p.o. daily at bedtime. 12. Citalopram 20 mg p.o. daily in the morning. REVIEW OF SYSTEMS: Could not be performed. PHYSICAL EXAMINATION: VITAL SIGNS: Temperature 97.7, pulse 62, respiratory rate 22, SpO2 94% on room air, blood pressure is 112/61. GENERAL: An elderly female, in mild painful distress. Afebrile, anicteric, and acyanotic. HEENT: Normocephalic, atraumatic. Oral mucosa is mildly dry. NECK: Supple with no obvious JVD. CARDIOVASCULAR: Regular rhythm and rate with normal heart sounds 1 and 2. RESPIRATORY: Good air entry bilaterally with no obvious crackle or rhonchi. Some transmitted breath sounds noted. GI: Full, soft. Diffuse tenderness noted, especially in the left lower quadrant. Bowel sound is present. UROGENITAL: Mireles catheter is in place. EXTREMITIES: Grossly normal looking, atraumatic with trace leg edema. COMPUTER SYSTEMS MANAGER: Conscious. The patient, however, is confused. Somnolent. Moves and groans with stimulation. DIAGNOSTIC DATA: CBC showed a WBC count of 26.3, hemoglobin of 11.2, platelets of 142, MCV of 90.2. Chemistry showed sodium 156, potassium 4.0, chloride 118, CO2 19, BUN 141, creatinine 5.82, glucose 124, calcium 8.5, total bilirubin 0.5, AST 40, ALT 64, alkaline phosphatase 139, total protein 6.4, albumin 2.6. Initial cardiac markers showed CK-MB 2.9, troponin 0.105. Urinalysis is not available yet. CT scan of the abdomen and pelvis without contrast showed features of acute diverticulitis. Bladder is decompressed by a catheter. Both kidneys are normal with no obvious obstruction. Chest x-ray performed on presentation showed stable chronic changes with no evidence of pneumonia or pneumothorax. Blunting of the left costophrenic angle also was noted suggestive of mild effusion. ASSESSMENT: 1. Acute renal failure: The patient had normal creatinine of 0.8 on October 18, 2020. This most likely due to hemodynamic factors related to poor oral intake as well as RAAS mariel use in a severely dehydrated patient. Some contribution from sepsis cannot be ruled out given with diagnosis of acute diverticulitis. 2. Hypernatremia: Most likely due to dehydration with excessive free water deficit. 3. Metabolic acidosis. 4. Abnormal liver enzymes. 5. Sepsis: Most likely due to acute diverticulitis. 6. Acute diverticulitis. 7. Dementia. 8. Recent intracranial hemorrhage. DISCUSSION: There is no overt indication for emergent dialysis at this point. Most of the patient's relatives are not inclined towards aggressive management at this point. Again dialysis alone without addressing the acute diverticulitis will be useless. More so, this patient with recent CVA has been somnolent given baseline dementia. PLAN: We will go ahead and start sodium bicarbonate infusion. We will also get urinalysis with reflex to culture as well as urine electrolytes. We will recheck renal function test in the morning. The patient is critically ill with guarded, if not poor prognosis. Job ID: [id number] [facility]
[2020-11-06 11:48] LABS: SARS-CoV-2 PCR by NAA Not Detected (NotDetected)
[2020-11-06] MEDS: Fentanyl 100 MCG/2 ML VIAL SLOW IVP PRN (17:32)
[2020-11-07] MEDS: Piperacillin/Tazobactam 2.25 GM in Sodium Chloride 0.9% 100 ML IVPB SCH ×3 (00:18→11:12)
[2020-11-07] MEDS: Fentanyl 100 MCG/2 ML VIAL SLOW IVP PRN ×4 (00:41→11:13)
[2020-11-07] MEDS: Lorazepam 2 MG/ML VIAL SLOW IVP PRN ×3 (05:21→11:12)
--- NOTE | 2020-11-07 06:01 | PDOC.FM ---
- Subjective Subjective: Mrs. Fay was sleeping comfortably this morning and I did not disturb her. Her nurse was in the room and about to give her fentanyl since she had been wincing and appearing uncomfortable. - Objective Vital Signs & Weight: Vital Signs (12 hours) Temp Pulse Resp BP Pulse Ox 11/07/20 04:00 62 16 136/60 94 L 11/07/20 00:00 62 16 118/56 L 11/06/20 20:00 96.8 F L 68 18 114/58 L 93 L Weight Weight 75.342 kg I&O: 11/05/20 11/06/20 11/07/20 06:59 06:59 06:59 Output Total 100 Balance -100 Result Diagrams: 11/06/20 07:32 11/06/20 07:32 Phys Exam - Physical Examination Constitutional: NAD Dx/Plan - Plan Plan: This is an 80F who presented to the ED from [facility] for abdominal pain and diarrhea x1 day, found to have acute diverticulitis. Acute Diverticulitis - Seen on CT imaging on arrival - continue with abx and pain control: Zosyn and fentanyl - comfort measures only with pending transition to hospice. * Palliative and CM involved * Family meeting this am to enroll in [facility] in hospice Acute Renal Failure with Uremia - pt has hx of CKD - comfort measures only, as above. No repeat labs Elevated Troponin - trop 0.105, admitted to telemetry - will not trend trop and intervention will not be pursued. Comfort measures, as above Hypernatremia - Na 153. Will not repeat labs - No intervention, as above Chronic Conditions: Dementia Recent ICH and CVAs CKD HTN Anxiety/Depression PVD Hypothyroidism -Decision was made by family to not continue any home medications Dispo: Admitted to tele. Family to meet with [facility] nurse this am for inpt hospice. IVF: SL Diet: NPO given mentation GI ppx: None DVT Ppx: None CODE: DNAR Addendum - Attending - Attending Attestation Date/Time: 11/07/20 [id number] I personally evaluated the patient and discussed the management with Dr. David Pedro. I agree with the History, Examination, Assessment and Plan documented above with any addition or exceptions noted below. Patient resting comfortably. Should be discharging to hospice at some point today after family meeting.
[2020-11-07 11:11] VITALS: BP 142/65; TEMP 97.6
--- NOTE | 2020-11-09 00:04 | PQF ---
Dear : Thomas Jimenez Date 11/09/2020 Please exercise your independent, professional judgment in responding to the clarification form. Clinical indicators are provided on the bottom of this form for your review Can you please further clarify the specificity of Encephalopathy? Please check appropriate box(es): [ X] Metabolic Encephalopathy [ ] Septic Encephalopathy [ ] Toxic Encephalopathy [ ] Other diagnosis please specify [ ] Unable to determine Physician Signature: Date/Time: For continuity of documentation, please document condition throughout progress notes and discharge summary. Thank You. To be completed by CDI/Coding staff for physician review: Present Clinical Indicators - Signs / Symptoms / Labs Results and Location in Medical Record [ x ] Acute encephalopathy due to sepsis and uremia Nephro PN pg.4 11/06 [ x ] Recent CVA has been somnolent given baseline dementia Consult pg.4 11/06 [ x ] Limited neurological assessment 2/ her mental status ED Provider pg.2 Present Risk Factors Results and Location in Medical Record [ x ] Dementia H and P pg.4 [ x ] HTN H and P pg.4 [ x ] Acute diverticulitis H and P pg.4 [ x ] Recent ICH and CVAs H and P pg.4 [ x ] 80 years old H and P pg.1 [ x ] CKD Consult pg.1 Present Treatments Results and Location in Medical Record [ x ] IV Fluids MAR [ x ] Zosyn IV 4.5mg IV MAR CDS/Tractor Operator Battery Signature: Jae Resendiz Phone #: [phone] Date 11/09/2020 This is a permanent part of the Medical Record [facility]
--- NOTE | 2020-11-09 12:52 | PQF ---
CLINICAL DOCUMENTATION CLARIFICATION FORM: Dear DR. KATEY CASTREJON / DR. KELLEY MAR Date: 11.09.20 Please exercise your independent, professional judgment in responding to the clarification form. Clinical indicators are provided on the bottom of this form for your review. Please check appropriate box(es): AMI TYPE: [ ] Type 2 MA (T2MI) secondary to: [ ] Acute Renal Failure [ ] Sepsis d/t diverticulitis [ ] Insignificant lab value - no MA [ ] Other: [ x ] Unable to determine For continuity of documentation, please document condition throughout progress notes and discharge summary. Thank You. To be completed by CDI/Coding staff for physician review: CLINICAL INDICATORS - SIGNS / SYMPTOMS / LABS / RESULTS AND LOCATION IN EMR LABS: Troponin I 1.11.21 less than 0.010 1.29.21 0.105 1.29 H&P (Selli): * Indeterminate troponin - likely secondary to acute renal failure * abdominal pain RISKS / RESULTS AND LOCATION IN EMR 1.29 H&P (Selli): * PMH: HTN; CAD; CKD3 *acute diverticulitis * acute renal failure w/ uremia * hypernatremia 1.30 PN (Obi): acute renal failure; metabolic acidosis; sepsis; acute diverticulitis TREATMENTS / RESULTS AND LOCATION IN EMR 1.29 H&P (Selli): * ED course: Zosyn 4.5 g; morphine NS * admitted to Telemetry * Indeterminate Troponin ..will hold work-up considering palliative goals of care; will not trend trop, intervention will not be pursued if trop increases * Nephro consulted from ED for emergent dialysis, however, family does not want this for pt d/t her wishes 1.31 PN (Ileana): pending [facility] hospice CDS Signature: Ashley Davies RN, CCDS Phone #: [phone] [email or web address] This is a permanent part of the Medical Record MTDD
== END 2020-11-07 12:25 | disposition hospice, inpatient (51) | DRG 871 ==
LOC: ERS 17:25 → 2NO 21:06 → UNDOADMOB 22:26 → 2NO 22:26 → OBSVTOIN 23:41
PROVIDERS: ADMIT Student in an Organized Health Care Education/Training Program; ATTEND Student in an Organized Health Care Education/Training Program
DX: A41.9 Sepsis, unspecified organism (principal); G93.41 Metabolic encephalopathy; N17.9 Acute kidney failure, unspecified; K57.32 Diverticulitis of large intestine without perforation or abscess without bleeding; E87.1 Hypo-osmolality and hyponatremia; E87.2 Acidosis; G93.40 Encephalopathy, unspecified; I62.9 Nontraumatic intracranial hemorrhage, unspecified; Z20.822 Contact with and (suspected) exposure to COVID-19; Z66 Do not resuscitate; I12.9 Hypertensive chronic kidney disease with stage 1 through stage 4 chronic kidney disease, or unspecified chronic kidney disease; E78.5 Hyperlipidemia, unspecified; I25.10 Atherosclerotic heart disease of native coronary artery without angina pectoris; N18.30 Chronic kidney disease, stage 3 unspecified; E03.9 Hypothyroidism, unspecified; F41.9 Anxiety disorder, unspecified; F32.9 Major depressive disorder, single episode, unspecified; I73.9 Peripheral vascular disease, unspecified; F03.90 Unspecified dementia, unspecified severity, without behavioral disturbance, psychotic disturbance, mood disturbance, and anxiety; E78.00 Pure hypercholesterolemia, unspecified; E86.0 Dehydration; Z88.8 Allergy status to other drugs, medicaments and biological substances; Z79.899 Other long term (current) drug therapy; Z86.73 Personal history of transient ischemic attack (TIA), and cerebral infarction without residual deficits; Z90.710 Acquired absence of both cervix and uterus
CPT/HCPCS: 36415; 71045; 74176; 80048; 80053; 81001; 82553; 82570; 83605; 83690; 84156; 84300; 84484; 84540; 85025; 87040; 87077; 87086; 87186; 87635; 93005; 96365; 96375; G0378; J2060; J2270; J2543; J3010; J3490; J7070; U0003; U0005